=== PATIENT | female | born 1945 | race Two or more races ===

== ENCOUNTER 2022-10-12 19:12 | Inpatient (IN) | payer MEDICARE, OTHER ==
[~2022-10-12] VITALS: Ht 167.6 cm; Wt 49.0 kg
[~2022-10-12 19:12] MED LIST: WARF2TAB PO; [UNRECOGNIZED DRUG - REMARK]
[2022-10-12 21:49] LABS: Basophils # (auto) 0.1 10 ^3/uL (0-0.2); Basophils % (auto) 0.8 % (0.0-2.0); Eosinophils # (auto) 0.2 10 ^3/uL (0-0.8); Eosinophils % (auto) 1.9 % (0.0-7.0); Hematocrit 39.7 % (36.0-46.0); Hemoglobin 13.1 g/dL (12.2-16.2); Lymphocytes # (auto) 1.7 10 ^3/uL (0.4-5.4); Lymphocytes % (auto) 21.7 % (10.0-50.0); Mean Corpuscular Hemoglobin 31.5 pg (28.0-32.0); Mean Corpuscular Hgb Conc. 32.9 g/dL (32.0-36.0); Mean Corpuscular Volume 95.6 fL (80.0-100.0); Monocytes # (auto) 0.7 10 ^3/uL (0-1.3); Monocytes % (auto) 8.9 % (0.0-12.0); Neutrophils # (auto) 5.3 10 ^3/uL (1.6-8.6); Neutrophils % (auto) 66.7 % (37.0-80.0); Nucleated Red Blood Cells % 0.1 %; Red Blood Cells 4.15 10^6/uL (4.0-5.20); Red Cell Distribution Width 13.4 % (11.8-14.3)
[2022-10-12 22:12] LABS: INR 0.99 (0.9-1.15); Partial Thromboplastin Time 24.9 SEC (24.5-34.5)
[2022-10-12 22:26] LABS: Albumin 3.3 g/dL (3.4-5.0); Calcium 8.8 mg/dL (8.5-10.1); Potassium 4.1 mmol/L (3.5-5.1)
[2022-10-12 22:29] LABS: BUN/Creatinine Ratio 23.4 (10.0-20.0); Bilirubin, Total 0.2 mg/dL (0.2-1.0); Total Protein 6.8 g/dL (6.4-8.2)
[2022-10-12] MEDS ORDERED: ACETAMINOPHEN/CODEINE#3 (300/30mg) TAB PO ONE (23:15)
[2022-10-13] MEDS ORDERED: IOHEXOL 350 MG/ML 100ML IJ ONE (00:23)
[2022-10-13] MEDS ORDERED: ALBUTEROL SULF 2.5 MG/0.5ML(0.5%) NEB SOLN ONE (00:24)
[2022-10-13] MEDS ORDERED: IPRATROPIUM BROM 0.5 MG/2.5ML INH SOL ONE (00:25)
[2022-10-13] MEDS ORDERED: IPRATROPIUM BROM 0.5 MG/2.5ML INH SOL NEB ONE (00:30)
[2022-10-13] MEDS ORDERED: DexAMETHasone SOD PHOS 10MG/1ML VIAL INJ IV ONE (00:30)
[2022-10-13] MEDS ORDERED: ALBUTEROL SULF 2.5 MG/0.5ML(0.5%) NEB SOLN NEB ONE (00:30)
[2022-10-13] MEDS ORDERED: HYDROmorphone HCL 2 MG/ML VL/or syr IV ONE (01:15)
[2022-10-13 01:54] VITALS: BP 153/97
[2022-10-13] MEDS ORDERED: NITROGLYCERIN 0.4 MG SL TAB SL PRN (02:45)
[2022-10-13] MEDS: DexAMETHasone SOD PHOS 10MG/1ML VIAL INJ IV SCH ×3 (05:45→21:20)
[2022-10-13] MEDS: SODIUM CHLOR 0.9% PF (SALINE LOCK) 10ML VIAL/SYR IV SCH ×3 (05:45→21:20)
[2022-10-13] MEDS: HYDROmorphone HCL 2 MG/ML VL/or syr IV PRN ×4 (05:46→20:25)
[2022-10-13 06:24] LABS: Albumin 3.4 g/dL (3.4-5.0); Calcium 9.1 mg/dL (8.5-10.1); Potassium 4.7 mmol/L (3.5-5.1)
[2022-10-13 06:29] LABS: BUN/Creatinine Ratio 22.6 (10.0-20.0); Bilirubin, Total 0.4 mg/dL (0.2-1.0)
[2022-10-13 06:32] LABS: Basophils # (auto) 0 10 ^3/uL (0-0.2); Basophils % (auto) 0.5 % (0.0-2.0); Eosinophils # (auto) 0 10 ^3/uL (0-0.8); Eosinophils % (auto) 0.2 % (0.0-7.0); Hematocrit 39.9 % (36.0-46.0); Hemoglobin 13.3 g/dL (12.2-16.2); Lymphocytes # (auto) 0.8 10 ^3/uL (0.4-5.4); Mean Corpuscular Hemoglobin 31.8 pg (28.0-32.0); Mean Corpuscular Hgb Conc. 33.3 g/dL (32.0-36.0); Mean Corpuscular Volume 95.5 fL (80.0-100.0); Monocytes # (auto) 0.1 10 ^3/uL (0-1.3); Monocytes % (auto) 1.3 % (0.0-12.0); Neutrophils # (auto) 6.8 10 ^3/uL (1.6-8.6); Red Blood Cells 4.18 10^6/uL (4.0-5.20); Red Cell Distribution Width 13.4 % (11.8-14.3); White Blood Cell 7.7 10^3/uL (4.4-10.8)
[2022-10-13] MEDS: hydrALAZINE HCL 20 MG/ML VL IV PRN ×2 (06:46→21:19)
[2022-10-13] MEDS: IPRATROPIUM BROM 0.5 MG/2.5ML INH SOL NEB PRN ×3 (07:14→21:37)
[2022-10-13] MEDS: ALBUTEROL SULF 2.5 MG/0.5ML(0.5%) NEB SOLN NEB PRN ×3 (07:14→21:37)
[2022-10-13] MEDS: ONDANSETRON HCL 4 MG/2 ML VIAL IV PRN ×3 (07:45→20:23)
[2022-10-13] MEDS: FAMOTIDINE (10MG/ML) 2ML VL IV SCH ×2 (10:24→21:20)
[2022-10-13 12:33] VITALS: BP 104/72
[2022-10-13 14:00] VITALS: BP 104/72
[2022-10-13 17:00] VITALS: BP 178/103
[2022-10-13] MEDS ORDERED: WARFARIN SODIUM 2 MG TAB PO ONE (17:00)
[2022-10-13 22:00] VITALS: BP 153/93
[2022-10-14] MEDS: ONDANSETRON HCL 4 MG/2 ML VIAL IV PRN ×6 (01:00→22:32)
[2022-10-14] MEDS: HYDROmorphone HCL 2 MG/ML VL/or syr IV PRN ×6 (01:02→22:32)
[2022-10-14 05:00] VITALS: BP 127/78
[2022-10-14] MEDS: ALBUTEROL SULF 2.5 MG/0.5ML(0.5%) NEB SOLN NEB PRN (05:01)
[2022-10-14] MEDS: IPRATROPIUM BROM 0.5 MG/2.5ML INH SOL NEB PRN (05:01)
[2022-10-14] MEDS: DexAMETHasone SOD PHOS 10MG/1ML VIAL INJ IV SCH ×3 (05:25→22:33)
[2022-10-14] MEDS: SODIUM CHLOR 0.9% PF (SALINE LOCK) 10ML VIAL/SYR IV SCH ×3 (05:26→22:38)
[2022-10-14 06:02] LABS: Basophils # (auto) 0 10 ^3/uL (0-0.2); Basophils % (auto) 0.5 % (0.0-2.0); Eosinophils # (auto) 0 10 ^3/uL (0-0.8); Eosinophils % (auto) 0.1 % (0.0-7.0); Hematocrit 39.8 % (36.0-46.0); Hemoglobin 13.5 g/dL (12.2-16.2); Lymphocytes # (auto) 1.2 10 ^3/uL (0.4-5.4); Lymphocytes % (auto) 16.3 % (10.0-50.0); Mean Corpuscular Hemoglobin 31.9 pg (28.0-32.0); Mean Corpuscular Hgb Conc. 33.9 g/dL (32.0-36.0); Mean Corpuscular Volume 94.2 fL (80.0-100.0); Monocytes # (auto) 0.6 10 ^3/uL (0-1.3); Monocytes % (auto) 8.4 % (0.0-12.0); Neutrophils # (auto) 5.4 10 ^3/uL (1.6-8.6); Neutrophils % (auto) 74.7 % (37.0-80.0); Nucleated Red Blood Cells % 0.1 %; Red Blood Cells 4.23 10^6/uL (4.0-5.20); Red Cell Distribution Width 13.2 % (11.8-14.3); White Blood Cell 7.2 10^3/uL (4.4-10.8)
[2022-10-14 06:22] LABS: Potassium 4.2 mmol/L (3.5-5.1)
[2022-10-14 06:31] LABS: Albumin 3.5 g/dL (3.4-5.0); BUN/Creatinine Ratio 32.6 (10.0-20.0); Bilirubin, Total 0.4 mg/dL (0.2-1.0); Calcium 9.4 mg/dL (8.5-10.1); Total Protein 7.1 g/dL (6.4-8.2)
[2022-10-14 06:52] LABS: INR 1.04 (0.9-1.15)
[2022-10-14 08:00] VITALS: BP 130/64
[2022-10-14 09:00] VITALS: BP 130/64
[2022-10-14] MEDS: FAMOTIDINE (10MG/ML) 2ML VL IV SCH ×2 (09:59→22:33)
[2022-10-14 13:00] VITALS: BP 140/72
[2022-10-14] MEDS: ALBUTEROL SULF 2.5 MG/0.5ML(0.5%) NEB SOLN NEB SCH ×2 (13:25→19:28)
[2022-10-14] MEDS: IPRATROPIUM BROM 0.5 MG/2.5ML INH SOL NEB SCH ×2 (13:25→19:28)
[2022-10-14] MEDS: AZITHROMYCIN 500MG/ 250ML 250 ML IV SCH (14:14)
[2022-10-14] MEDS ORDERED: WARFARIN SODIUM 2 MG TAB PO ONE (17:00)
[2022-10-14 17:03] VITALS: BP 163/83
[2022-10-14 22:00] VITALS: BP 127/66
[2022-10-15] VITALS (7 sets, daily range): BP systolic 134–158; BP diastolic 76–87
[2022-10-15] MEDS: IPRATROPIUM BROM 0.5 MG/2.5ML INH SOL NEB SCH ×5 (00:23→22:25)
[2022-10-15] MEDS: ALBUTEROL SULF 2.5 MG/0.5ML(0.5%) NEB SOLN NEB SCH ×5 (00:24→22:25)
[2022-10-15] MEDS: ONDANSETRON HCL 4 MG/2 ML VIAL IV PRN ×3 (02:46→16:10)
[2022-10-15] MEDS: HYDROmorphone HCL 2 MG/ML VL/or syr IV PRN ×3 (02:46→10:37)
[2022-10-15] MEDS: DexAMETHasone SOD PHOS 10MG/1ML VIAL INJ IV SCH ×3 (06:29→21:21)
[2022-10-15] MEDS: SODIUM CHLOR 0.9% PF (SALINE LOCK) 10ML VIAL/SYR IV SCH ×3 (06:31→21:22)
[2022-10-15 06:41] LABS: INR 1.42 (0.9-1.15); Partial Thromboplastin Time 23.8 SEC (24.5-34.5)
[2022-10-15] MEDS: FAMOTIDINE (10MG/ML) 2ML VL IV SCH ×2 (10:00→21:21)
[2022-10-15] MEDS: AZITHROMYCIN 500MG/ 250ML 250 ML IV SCH (10:37)
[2022-10-15] MEDS ORDERED: WARFARIN SODIUM 2.5 MG TAB PO ONE (17:00)
[2022-10-15] MEDS: diphenhdrAMINE HCL 50 MG/1 ML VL IV PRN (21:21)
[2022-10-16] VITALS (7 sets, daily range): BP systolic 130–174; BP diastolic 74–93
[2022-10-16 05:48] LABS: INR 1.63 (0.9-1.15)
[2022-10-16] MEDS: ALBUTEROL SULF 2.5 MG/0.5ML(0.5%) NEB SOLN NEB SCH ×4 (05:54→23:02)
[2022-10-16] MEDS: IPRATROPIUM BROM 0.5 MG/2.5ML INH SOL NEB SCH ×4 (05:54→23:02)
[2022-10-16] MEDS: DexAMETHasone SOD PHOS 10MG/1ML VIAL INJ IV SCH ×3 (06:26→22:01)
[2022-10-16] MEDS: SODIUM CHLOR 0.9% PF (SALINE LOCK) 10ML VIAL/SYR IV SCH ×3 (06:31→22:01)
[2022-10-16] MEDS: AZITHROMYCIN 500MG/ 250ML 250 ML IV SCH (08:48)
[2022-10-16] MEDS: hydrALAZINE HCL 20 MG/ML VL IV PRN ×2 (08:48→15:59)
[2022-10-16] MEDS: FAMOTIDINE (10MG/ML) 2ML VL IV SCH ×2 (08:49→22:01)
[2022-10-16] MEDS: ALBUTEROL SULF 2.5 MG/0.5ML(0.5%) NEB SOLN NEB PRN (10:31)
[2022-10-16] MEDS: ONDANSETRON HCL 4 MG/2 ML VIAL IV PRN ×2 (13:18→17:41)
[2022-10-16] MEDS: DOCUSATE SOD 100 MG CAP PO PRN (13:18)
[2022-10-16] MEDS ORDERED: WARFARIN SODIUM 1 MG TAB PO ONE (17:00)
[2022-10-17] VITALS (8 sets, daily range): BP systolic 149–184; BP diastolic 74–99
[2022-10-17] MEDS: diphenhdrAMINE HCL 50 MG/1 ML VL IV PRN (01:37)
[2022-10-17] MEDS: ALBUTEROL SULF 2.5 MG/0.5ML(0.5%) NEB SOLN NEB PRN (03:10)
[2022-10-17] MEDS: SODIUM CHLOR 0.9% PF (SALINE LOCK) 10ML VIAL/SYR IV SCH ×2 (05:43→13:32)
[2022-10-17] MEDS: DOCUSATE SOD 100 MG CAP PO PRN (05:43)
[2022-10-17] MEDS: DexAMETHasone SOD PHOS 10MG/1ML VIAL INJ IV SCH (05:43)
[2022-10-17 06:09] LABS: INR 2.05 (0.9-1.15); Partial Thromboplastin Time 33.2 SEC (24.5-34.5)
[2022-10-17] MEDS: IPRATROPIUM BROM 0.5 MG/2.5ML INH SOL NEB SCH ×2 (06:40→11:57)
[2022-10-17] MEDS: ALBUTEROL SULF 2.5 MG/0.5ML(0.5%) NEB SOLN NEB SCH ×2 (06:40→11:57)
[2022-10-17] MEDS: FAMOTIDINE (10MG/ML) 2ML VL IV SCH (09:16)
[2022-10-17] MEDS: ONDANSETRON HCL 4 MG/2 ML VIAL IV PRN (09:16)
[2022-10-17] MEDS: AZITHROMYCIN 500MG/ 250ML 250 ML IV SCH (09:57)
[2022-10-17] MEDS ORDERED: hydrALAZINE HCL 10 MG TAB PO ONE ×2 (11:15→15:45)
[2022-10-17] MEDS ORDERED: METOPROLOL TARTRATE 25 MG TAB PO ONE (13:45)
[2022-10-17] MEDS ORDERED: METH4PAK PO (14:37)
[2022-10-17] MEDS: hydrALAZINE HCL 20 MG/ML VL IV PRN (16:14)
[2022-10-17] MEDS ORDERED: WARFARIN SODIUM 2 MG TAB PO ONE (17:00)
[2022-10-18] MEDS ORDERED: DexAMETHasone SOD PHOS 10MG/1ML VIAL INJ IV SCH (10:00)
== END 2022-10-17 18:10 | disposition home or self-care (01) | DRG 189 ==
LOC: EDUNIT# 19:12 → EDBD 19:12 → ER 19:12 → TELE 10-13 02:46 → TELE-CENTR 10-13 12:35
PROVIDERS: ADMIT Nurse Practitioner Family; ATTEND Internal Medicine
DX: J96.21 Acute and chronic respiratory failure with hypoxia (principal); J44.1 Chronic obstructive pulmonary disease with (acute) exacerbation; I10 Essential (primary) hypertension; F17.210 Nicotine dependence, cigarettes, uncomplicated; J45.909 Unspecified asthma, uncomplicated; Z86.711 Personal history of pulmonary embolism; Z88.6 Allergy status to analgesic agent; Z90.710 Acquired absence of both cervix and uterus; Z88.8 Allergy status to other drugs, medicaments and biological substances; Z71.6 Tobacco abuse counseling; J20.9 Acute bronchitis, unspecified
CPT/HCPCS: 36415; 36600; 71045; 71260; 74177; 80053; 82805; 83880; 84484; 85025; 85379; 85610; 85730; 94640; G0378; J1100; J2405; J3490

== ENCOUNTER 2023-08-11 03:07 | Emergency (ER) | payer OTHER ==
[~2023-08-11] VITALS: Ht 160 cm; Wt 68.1 kg
[~2023-08-11 03:07] MED LIST changes: +ALBUAER3 IN; +AZIT500T66 PO; +IPRA0.00 IN; +PRED20TA2 PO; -WARF2TAB PO; -[UNRECOGNIZED DRUG - REMARK]
[2023-08-11] MEDS: ALBUTEROL SULF 2.5 MG/0.5ML(0.5%) NEB SOLN NEB ONE ×2 (03:46→06:58)
[2023-08-11] MEDS: IPRATROPIUM BROM 0.5 MG/2.5ML INH SOL NEB ONE ×2 (03:46→06:59)
[2023-08-11] MEDS: methylPREDNISolone SOD SUCC 125 MG/2 ML VL IV ONE (03:47)
[2023-08-11 04:02] LABS: Basophils # (auto) 0.1 10 ^3/uL (0-0.2); Eosinophils # (auto) 0.2 10 ^3/uL (0-0.8); Eosinophils % (auto) 1.9 % (0.0-7.0); Hematocrit 43.5 % (36.0-46.0); Hemoglobin 14.3 g/dL (12.2-16.2); Lymphocytes # (auto) 1.6 10 ^3/uL (0.4-5.4); Lymphocytes % (auto) 16.6 % (10.0-50.0); Mean Corpuscular Hemoglobin 29.6 pg (28.0-32.0); Mean Corpuscular Hgb Conc. 32.8 g/dL (32.0-36.0); Mean Corpuscular Volume 90.5 fL (80.0-100.0); Monocytes # (auto) 0.8 10 ^3/uL (0-1.3); Monocytes % (auto) 8.3 % (0.0-12.0); Neutrophils # (auto) 6.8 10 ^3/uL (1.6-8.6); Neutrophils % (auto) 72.2 % (37.0-80.0); Nucleated Red Blood Cells % 0.1 %; Red Blood Cells 4.81 10^6/uL (4.0-5.20); Red Cell Distribution Width 13.9 % (11.8-14.3); White Blood Cell 9.5 10^3/uL (4.4-10.8)
[2023-08-11 04:07] VITALS: PULSE 98; RESP 22; O2SAT 99
[2023-08-11] MEDS: AZITHROMYCIN 250 MG TAB PO ONE (04:29)
[2023-08-11] MEDS: cefTRIAXone 1GM/50ML D5W 50 ML IV ONE (04:29)
[2023-08-11 04:48] LABS: Chloride 104 mmol/L (98-107); Potassium 3.9 mmol/L (3.5-5.1); Sodium 141 mmol/L (136-145)
[2023-08-11] MEDS: ONDANSETRON HCL 4 MG/2 ML VIAL IV ONE (04:48)
[2023-08-11 04:49] LABS: Anion Gap 11 (5-15); Calcium 9.8 mg/dL (8.5-10.1); Carbon Dioxide 26 mmol/L (20-30)
[2023-08-11 04:54] LABS: BUN/Creatinine Ratio 10.3 (10.0-20.0); Blood Urea Nitrogen 8 mg/dL (9-23); Glucose 80 mg/dL (74-106)
[2023-08-11] MEDS: ASPirin 325 MG TAB PO ONE (05:00)
[2023-08-11] MEDS: METOPROLOL SUCCINATE XL 50 MG TAB PO ONE ×2 (06:57→12:14)
[2023-08-11 08:00] VITALS: RESP 21; TEMP 98.8; O2SAT 91
[2023-08-11 10:14] VITALS: BP 183/105; PULSE 103
== END 2023-08-11 12:13 | disposition home or self-care (01) ==
LOC: EDBD 03:07 → ER 03:07
DX: J44.1 Chronic obstructive pulmonary disease with (acute) exacerbation (principal); I25.9 Chronic ischemic heart disease, unspecified; I10 Essential (primary) hypertension; F17.210 Nicotine dependence, cigarettes, uncomplicated; Z90.710 Acquired absence of both cervix and uterus
CPT/HCPCS: 36415; 36600; 71045; 80048; 82805; 83880; 84484; 85025; 93005; 94640; 96365; 96375; 99291; J0696; J2405; J2930; J7644

== ENCOUNTER 2023-08-26 18:13 | Emergency (ER) | payer OTHER ==
[~2023-08-26] VITALS: Ht 170.2 cm; Wt 61.0 kg
[2023-08-26 18:15] VITALS: PULSE 102; RESP 18; O2SAT 100
[2023-08-26] MEDS: ALBUTEROL SULF 2.5 MG/0.5ML(0.5%) NEB SOLN NEB ONE ×2 (18:52→20:46)
[2023-08-26] MEDS: IPRATROPIUM BROM 0.5 MG/2.5ML INH SOL NEB ONE ×2 (18:52→20:46)
[2023-08-26 19:02] LABS: Basophils # (auto) 0.1 10 ^3/uL (0-0.2); Basophils % (auto) 0.9 % (0.0-2.0); Eosinophils # (auto) 0.1 10 ^3/uL (0-0.8); Eosinophils % (auto) 0.7 % (0.0-7.0); Hematocrit 45.2 % (36.0-46.0); Hemoglobin 14.4 g/dL (12.2-16.2); Lymphocytes # (auto) 2.4 10 ^3/uL (0.4-5.4); Lymphocytes % (auto) 21.6 % (10.0-50.0); Mean Corpuscular Hemoglobin 29.2 pg (28.0-32.0); Mean Corpuscular Hgb Conc. 31.9 g/dL (32.0-36.0); Mean Corpuscular Volume 91.4 fL (80.0-100.0); Monocytes % (auto) 8.8 % (0.0-12.0); Neutrophils # (auto) 7.6 10 ^3/uL (1.6-8.6); Nucleated Red Blood Cells % 0.1 %; Red Blood Cells 4.94 10^6/uL (4.0-5.20); Red Cell Distribution Width 14.5 % (11.8-14.3); White Blood Cell 11.1 10^3/uL (4.4-10.8)
[2023-08-26 19:12] LABS: Chloride 107 mmol/L (98-107); Sodium 140 mmol/L (136-145)
[2023-08-26 19:13] LABS: Anion Gap 12 (5-15); Carbon Dioxide 21 mmol/L (20-30)
[2023-08-26 19:14] LABS: Calcium 9.9 mg/dL (8.5-10.1)
[2023-08-26 19:19] LABS: BUN/Creatinine Ratio 22.3 (10.0-20.0); Blood Urea Nitrogen 21 mg/dL (9-23); Glucose 61 mg/dL (74-106)
[2023-08-26 19:30] VITALS: PULSE 107; RESP 18; O2SAT 99
[2023-08-26] MEDS: cefTRIAXone 1GM/50ML D5W 50 ML IV ONE (20:21)
[2023-08-26] MEDS: methylPREDNISolone SOD SUCC 125 MG/2 ML VL IV ONE (20:22)
[2023-08-26] MEDS: AZITHROMYCIN 250 MG TAB PO ONE (20:29)
[2023-08-26] MEDS ORDERED: HYDROcodone-ACET 5/325MG TAB PO ONE (21:30)
[2023-08-26] MEDS ORDERED: ACETAMINOPHEN 325 MG TAB PO ONE (22:15)
[2023-08-26] MEDS: ONDANSETRON HCL 4 MG/2 ML VIAL IV ONE (22:38)
[2023-08-27 07:42] VITALS: TEMP 97.7
[2023-08-27] MEDS: HYDROcodone-ACET 5/325MG TAB PO ONE (08:26)
[2023-08-27] MEDS: ACETAMINOPHEN 325 MG TAB PO ONE (08:30)
[2023-08-27 13:00] VITALS: BP 169/104; PULSE 91; RESP 18; O2SAT 98
== END 2023-08-27 15:05 | disposition home or self-care (01) ==
LOC: EDBD 18:13 → ER 18:13
DX: J44.1 Chronic obstructive pulmonary disease with (acute) exacerbation (principal); I10 Essential (primary) hypertension; F17.210 Nicotine dependence, cigarettes, uncomplicated; Z98.890 Other specified postprocedural states
CPT/HCPCS: 36415; 36600; 71045; 80048; 82805; 83605; 83880; 84484; 85025; 87040; 94640; 96365; 96375; 99284; J0696; J2405; J2919; J7644; 99291

== ENCOUNTER 2023-09-13 02:26 | Emergency (ER) | payer OTHER ==
[~2023-09-13] VITALS: Ht 162.6 cm; Wt 50.0 kg
[2023-09-13] MEDS: ALBUTEROL SULF 2.5 MG/0.5ML(0.5%) NEB SOLN NEB ONE (02:58)
[2023-09-13] MEDS: IPRATROPIUM BROM 0.5 MG/2.5ML INH SOL NEB ONE (02:58)
[2023-09-13 03:38] LABS: Basophils # (auto) 0.1 10 ^3/uL (0-0.2); Basophils % (auto) 0.7 % (0.0-2.0); Eosinophils # (auto) 0.2 10 ^3/uL (0-0.8); Eosinophils % (auto) 1.1 % (0.0-7.0); Hemoglobin 13.9 g/dL (12.2-16.2); Lymphocytes # (auto) 2.1 10 ^3/uL (0.4-5.4); Lymphocytes % (auto) 13.7 % (10.0-50.0); Mean Corpuscular Hemoglobin 29.2 pg (28.0-32.0); Mean Corpuscular Hgb Conc. 31.5 g/dL (32.0-36.0); Mean Corpuscular Volume 92.7 fL (80.0-100.0); Monocytes # (auto) 1.3 10 ^3/uL (0-1.3); Monocytes % (auto) 8.4 % (0.0-12.0); Neutrophils # (auto) 11.8 10 ^3/uL (1.6-8.6); Neutrophils % (auto) 76.1 % (37.0-80.0); Red Blood Cells 4.74 10^6/uL (4.0-5.20); Red Cell Distribution Width 15.1 % (11.8-14.3); White Blood Cell 15.5 10^3/uL (4.4-10.8)
[2023-09-13] MEDS: methylPREDNISolone SOD SUCC 125 MG/2 ML VL IV ONE ×2 (03:42→10:36)
[2023-09-13 03:59] LABS: Albumin 4.1 g/dL (3.2-4.8); Alkaline Phosphatase 54 U/L (46-116); Anion Gap 8 (5-15); Aspartate Aminotransferase 9 U/L (13-40); Bilirubin, Total 0.3 mg/dL (0.2-1.0); Blood Urea Nitrogen 19 mg/dL (9-23); Calcium 9.3 mg/dL (8.7-10.4); Carbon Dioxide 23 mmol/L (20-30); Chloride 111 mmol/L (98-107); Glucose 120 mg/dL (74-106); Potassium 4.2 mmol/L (3.5-5.1); Sodium 142 mmol/L (136-145)
[2023-09-13 04:00] VITALS: PULSE 106; RESP 20; O2SAT 97
[2023-09-13 04:00] LABS: Total Protein 6.6 g/dL (5.7-8.2)
[2023-09-13 04:04] LABS: Alanine Aminotransferase 9 U/L (7-40)
[2023-09-13] MEDS: AZITHROMYCIN 500MG/ 250ML 250 ML IV ONE (05:31)
[2023-09-13] MEDS: NITROGLYCERIN 2% OINT 1GM PKG TD ONE (05:37)
[2023-09-13] MEDS: ASPirin 325 MG TAB PO ONE (05:40)
[2023-09-13 07:45] VITALS: PULSE 98; RESP 16; O2SAT 95
[2023-09-13 08:00] VITALS: TEMP 97.8
[2023-09-13] MEDS: ENOXAPARIN SOD 100 MG/1 ML SYRINGE SC ONE (08:09)
[2023-09-13 10:00] VITALS: O2SAT 95
[2023-09-13] MEDS ORDERED: PRED20TA2 PO (10:47)
[2023-09-13] MEDS ORDERED: IPRA0.00 IN (10:47)
[2023-09-13] MEDS ORDERED: AZIT500T66 PO (10:47)
[2023-09-13] MEDS ORDERED: ALBUAER3 IN (10:47)
[2023-09-13] MEDS ORDERED: HYDROmorphone HCL 2 MG/ML VL/or syr IV ONE (11:00)
[2023-09-13 11:08] VITALS: BP 166/110; PULSE 100; RESP 22
[2023-09-13] MEDS: HYDROmorphone HCL 2 MG/ML VL/or syr IV ONE (11:08)
== END 2023-09-13 15:41 | disposition home or self-care (01) ==
LOC: ER 02:26 → EDBD 02:26 → EDUNIT# 02:26 → ER 15:41
DX: J44.1 Chronic obstructive pulmonary disease with (acute) exacerbation (principal); I21.4 Non-ST elevation (NSTEMI) myocardial infarction; I10 Essential (primary) hypertension; F17.210 Nicotine dependence, cigarettes, uncomplicated; Z90.49 Acquired absence of other specified parts of digestive tract; Z90.710 Acquired absence of both cervix and uterus; Z88.6 Allergy status to analgesic agent; Z88.8 Allergy status to other drugs, medicaments and biological substances
CPT/HCPCS: 36415; 71045; 80053; 84484; 85025; 93005; 94640; 96365; 96366; 96372; 96375; 96376; 99284; J0456; J1170; J1650; J2919; J7644

== ENCOUNTER 2023-10-12 12:39 | Inpatient (IN) | payer OTHER ==
[~2023-10-12] VITALS: Ht 170.2 cm; Wt 48.3 kg
[2023-10-12 13:03] VITALS: PULSE 122; RESP 20; O2SAT 95
[2023-10-12 13:27] LABS: Basophils # (auto) 0.1 10 ^3/uL (0-0.2); Basophils % (auto) 0.9 % (0.0-2.0); Eosinophils # (auto) 0.2 10 ^3/uL (0-0.8); Eosinophils % (auto) 2.5 % (0.0-7.0); Hematocrit 37.1 % (36.0-46.0); Hemoglobin 12.1 g/dL (12.2-16.2); Lymphocytes # (auto) 1.2 10 ^3/uL (0.4-5.4); Lymphocytes % (auto) 13.1 % (10.0-50.0); Mean Corpuscular Hemoglobin 29.9 pg (28.0-32.0); Mean Corpuscular Hgb Conc. 32.7 g/dL (32.0-36.0); Mean Corpuscular Volume 91.5 fL (80.0-100.0); Monocytes % (auto) 10.2 % (0.0-12.0); Neutrophils # (auto) 6.9 10 ^3/uL (1.6-8.6); Neutrophils % (auto) 73.3 % (37.0-80.0); Nucleated Red Blood Cells % 0.1 %; Red Blood Cells 4.05 10^6/uL (4.0-5.20); Red Cell Distribution Width 14.6 % (11.8-14.3); White Blood Cell 9.4 10^3/uL (4.4-10.8)
[2023-10-12] MEDS: ALBUTEROL SULF 2.5 MG/0.5ML(0.5%) NEB SOLN NEB ONE ×2 (13:36→19:30)
[2023-10-12 13:54] LABS: Alanine Aminotransferase 12 U/L (7-40); Albumin 3.8 g/dL (3.2-4.8); Alkaline Phosphatase 42 U/L (46-116); Anion Gap 8 (5-15); Aspartate Aminotransferase 24 U/L (13-40); BUN/Creatinine Ratio 21.1 (10.0-20.0); Blood Urea Nitrogen 15 mg/dL (9-23); Calcium 9.2 mg/dL (8.5-10.1); Carbon Dioxide 28 mmol/L (20-30); Chloride 107 mmol/L (98-107); Glucose 105 mg/dL (74-106); Potassium 4.5 mmol/L (3.5-5.1); Sodium 143 mmol/L (136-145)
[2023-10-12 13:55] LABS: Bilirubin, Total 0.4 mg/dL (0.2-1.0); Total Protein 5.5 g/dL (5.7-8.2)
[2023-10-12] MEDS: AZITHROMYCIN 250 MG TAB PO ONE (16:36)
[2023-10-12] MEDS: HYDROmorphone HCL 2 MG/ML VL/or syr IV ONE (16:36)
[2023-10-12] MEDS: ONDANSETRON HCL 4 MG/2 ML VIAL IV ONE (16:36)
[2023-10-12] MEDS: SODIUM CHL 0.9% IV ONE (18:45)
[2023-10-12] MEDS: METHYLPREDNISOLONE SOD SUCC IV ONE (18:45)
[2023-10-12] MEDS: ALBUTEROL SULF 2.5 MG/0.5ML(0.5%) NEB SOLN ONE (18:56)
[2023-10-12 19:30] VITALS: PULSE 102; RESP 15; O2SAT 96
[2023-10-12] MEDS: LORazepam 2MG/ML-1ML VIAL IV ONE (21:18)
[2023-10-12 21:22] LABS: Urine Bacteria None Seen /hpf (None Seen)
[2023-10-12 21:34] LABS: Base Excess -0.3 mmol/L (-2.0-2.0)
[2023-10-12 21:35] VITALS: PULSE 111; O2SAT 100
[2023-10-12 21:37] LABS: Urine Blood Negative /uL (Negative); Urine Clarity Clear (Clear); Urine Color Light-Yellow (Yellow); Urine Protein, UAD Negative (Negative); Urine Specific Gravity 1.013 (1.001-1.035); Urine Urobilinogen Normal (Negative); Urine WBC 1 /hpf (0 - 5)
[2023-10-12] MEDS ORDERED: DOCUSATE SOD 100 MG CAP PO PRN (22:30)
[2023-10-12] MEDS ORDERED: ONDANSETRON HCL 4 MG/2 ML VIAL IV PRN (22:30)
[2023-10-12 22:54] VITALS: BP 162/88; PULSE 111; RESP 16; TEMP 98.2; O2SAT 100
[2023-10-12] MEDS: ASPirin 81 mg TAB PO ONE (23:33)
[2023-10-12] MEDS: HYDROmorphone HCL 2 MG/ML VL/or syr IV PRN (23:34)
[2023-10-12 23:54] VITALS: BP 156/99; PULSE 105; O2SAT 94
[2023-10-13] VITALS (16 sets, daily range): BP systolic 122–171; BP diastolic 69–93; PULSE 72–110; RESP 16–24; TEMP 97.3–99.8; O2SAT 94–100
[2023-10-13] MEDS ORDERED: MORPHINE SULFATE INJ 2 MG/ml SYRG IV PRN
[2023-10-13] MEDS ORDERED: NITROGLYCERIN 0.4 MG SL TAB SL PRN
[2023-10-13] MEDS: MELATONIN 5 MG TAB PO ONE (00:30)
[2023-10-13] MEDS: ALBUTEROL SULF 2.5 MG/0.5ML(0.5%) NEB SOLN NEB PRN (03:59)
[2023-10-13] MEDS: IPRATROPIUM BROM 0.5 MG/2.5ML INH SOL NEB PRN (03:59)
[2023-10-13] MEDS: SODIUM CHLOR 0.9% PF (SALINE LOCK) 10ML VIAL/SYR IV SCH (05:28)
[2023-10-13] MEDS: methylPREDNISolone SOD SUCC 40 MG/ML VL IV SCH (05:29)
[2023-10-13 06:50] LABS: Basophils # (auto) 0 10 ^3/uL (0-0.2); Basophils % (auto) 0.4 % (0.0-2.0); Eosinophils # (auto) 0 10 ^3/uL (0-0.8); Hemoglobin 12.2 g/dL (12.2-16.2); Lymphocytes # (auto) 0.4 10 ^3/uL (0.4-5.4); Lymphocytes % (auto) 6.6 % (10.0-50.0); Mean Corpuscular Hemoglobin 29.8 pg (28.0-32.0); Mean Corpuscular Volume 90.3 fL (80.0-100.0); Monocytes # (auto) 0 10 ^3/uL (0-1.3); Monocytes % (auto) 0.7 % (0.0-12.0); Neutrophils % (auto) 92.3 % (37.0-80.0); Nucleated Red Blood Cells % 0.1 %; Red Cell Distribution Width 14.4 % (11.8-14.3); White Blood Cell 5.4 10^3/uL (4.4-10.8)
[2023-10-13 07:17] LABS: Alanine Aminotransferase 11 U/L (7-40); Alkaline Phosphatase 41 U/L (46-116); Anion Gap 8 (5-15); BUN/Creatinine Ratio 25.9 (10.0-20.0); Blood Urea Nitrogen 21 mg/dL (9-23); Calcium 9.4 mg/dL (8.7-10.4); Carbon Dioxide 27 mmol/L (20-30); Chloride 106 mmol/L (98-107); Glucose 135 mg/dL (74-106); Sodium 141 mmol/L (136-145)
[2023-10-13 07:18] LABS: Albumin 3.7 g/dL (3.2-4.8)
[2023-10-13 07:19] LABS: Aspartate Aminotransferase 14 U/L (13-40); Bilirubin, Total 0.3 mg/dL (0.2-1.0); Total Protein 5.6 g/dL (5.7-8.2)
[2023-10-13] MEDS: FAMOTIDINE (10MG/ML) 2ML VL IV SCH (09:48)
[2023-10-13] MEDS: ASPirin 81 mg TAB PO SCH (09:49)
[2023-10-13] MEDS: cefTRIAXone 1GM/50ML D5W 50 ML IV ONE (12:45)
[2023-10-13] MEDS: hydrALAZINE HCL 20 MG/ML VL IV PRN (14:45)
[2023-10-14] VITALS (12 sets, daily range): BP systolic 119–169; BP diastolic 73–90; PULSE 77–89; RESP 17–20; TEMP 97.9–98.5; O2SAT 93–99
[2023-10-14] MEDS: cefTRIAXone 1GM/50ML D5W 50 ML IV SCH (09:00)
[2023-10-15] VITALS (16 sets, daily range): BP systolic 95–185; BP diastolic 52–96; PULSE 62–114; RESP 16–22; TEMP 97.8–98.1; O2SAT 91–99
[2023-10-15] MEDS: IPRATROPIUM BROM 0.5 MG/2.5ML INH SOL NEB SCH (12:37)
[2023-10-15] MEDS: ALBUTEROL SULF 2.5 MG/0.5ML(0.5%) NEB SOLN NEB SCH (12:37)
[2023-10-16] VITALS (11 sets, daily range): BP systolic 124–164; BP diastolic 74–99; PULSE 61–110; RESP 16–19; TEMP 97.9–98.2; O2SAT 94–97
[2023-10-16] MEDS ORDERED: LEVO500T91 PO (11:50)
[2023-10-16] MEDS ORDERED: PRED20TA2 PO (11:50)
== END 2023-10-16 17:16 | disposition hospice, home (50) | DRG 189 ==
LOC: EDBD 12:39 → ER 12:39 → TELE 23:51 → TELE-WESTW 10-13 02:25
PROVIDERS: ADMIT Nurse Practitioner Family; ATTEND Family Medicine
PROC: 5A09357 Assistance with Respiratory Ventilation, Less than 24 Consecutive Hours, Continuous Positive Airway Pressure (ICD-10-PCS; principal; 2023-10-12)
DX: J96.01 Acute respiratory failure with hypoxia (principal); J18.9 Pneumonia, unspecified organism; J44.1 Chronic obstructive pulmonary disease with (acute) exacerbation; I10 Essential (primary) hypertension; F17.210 Nicotine dependence, cigarettes, uncomplicated; Z51.5 Encounter for palliative care; Z90.710 Acquired absence of both cervix and uterus; Z90.49 Acquired absence of other specified parts of digestive tract; Z88.6 Allergy status to analgesic agent; Z86.711 Personal history of pulmonary embolism; Z79.899 Other long term (current) drug therapy
CPT/HCPCS: 36415; 36600; 71045; 80053; 81001; 82805; 84484; 85025; 85379; 93005; 94640; 94660; 96365; 96366; 96375; G0378; J2405; J3490

== ENCOUNTER 2023-12-05 04:01 | Inpatient (IN) | payer OTHER ==
[~2023-12-05] VITALS: Ht 160 cm; Wt 38.3 kg
[~2023-12-05 04:01] MED LIST changes: +ALBU108A5 INH; +BUDE1AER16 INH; +DILT-29 PO; +GABA-1250 PO; +IPRA0.00 NEB; +LEVO500T91 PO; +OMEP1CAP70 PO; +WARF4TAB69 PO
[2023-12-05 05:30] VITALS: PULSE 115; RESP 22; O2SAT 92
[2023-12-05 07:25] VITALS: PULSE 106; RESP 22; O2SAT 96
[2023-12-05 07:30] LABS: Basophils # (auto) 0 10 ^3/uL (0-0.2); Basophils % (auto) 0.2 % (0.0-2.0); Eosinophils # (auto) 0 10 ^3/uL (0-0.8); Eosinophils % (auto) 0.2 % (0.0-7.0); Hematocrit 48.9 % (36.0-46.0); Hemoglobin 16.1 g/dL (12.2-16.2); Lymphocytes # (auto) 1.4 10 ^3/uL (0.4-5.4); Lymphocytes % (auto) 9.1 % (10.0-50.0); Mean Corpuscular Hemoglobin 29.8 pg (28.0-32.0); Mean Corpuscular Volume 90.3 fL (80.0-100.0); Monocytes # (auto) 1.4 10 ^3/uL (0-1.3); Monocytes % (auto) 9.3 % (0.0-12.0); Neutrophils # (auto) 12.2 10 ^3/uL (1.6-8.6); Neutrophils % (auto) 81.2 % (37.0-80.0); Platelet Count (auto) 223 10^3/uL (140-450); Red Blood Cells 5.41 10^6/uL (4.0-5.20); Red Cell Distribution Width 14.9 % (11.8-14.3)
[2023-12-05] MEDS: ALBUTEROL SULF 2.5 MG/0.5ML(0.5%) NEB SOLN NEB ONE (07:38)
[2023-12-05 07:50] LABS: Alanine Aminotransferase 14 U/L (7-40); Albumin 3.8 g/dL (3.2-4.8); Alkaline Phosphatase 37 U/L (46-116); Anion Gap 7 (5-15); Aspartate Aminotransferase 15 U/L (13-40); BUN/Creatinine Ratio 21.6 (10.0-20.0); Blood Urea Nitrogen 16 mg/dL (9-23); Calcium 9.3 mg/dL (8.7-10.4); Carbon Dioxide 29 mmol/L (20-30); Chloride 104 mmol/L (98-107); Glucose 85 mg/dL (74-106); Sodium 140 mmol/L (136-145)
[2023-12-05 07:51] LABS: Bilirubin, Total 0.9 mg/dL (0.2-1.0); Total Protein 5.9 g/dL (5.7-8.2)
[2023-12-05] MEDS: methylPREDNISolone SOD SUCC 125 MG/2 ML VL IV ONE (07:55)
[2023-12-05 09:08] LABS: Urine Bacteria None Seen /hpf (None Seen)
[2023-12-05 09:18] LABS: Urine Blood Negative /uL (Negative); Urine Clarity Clear (Clear); Urine Color Yellow (Yellow); Urine Protein, UAD Negative (Negative); Urine Specific Gravity 1.017 (1.001-1.035); Urine Urobilinogen Normal (Negative); Urine WBC 3 /hpf (0 - 5); Urine pH 7.5 (5.0-9.0)
[2023-12-05] MEDS: cloNIDine HCL 0.1 MG TAB PO ONE (09:45)
[2023-12-05] MEDS: FUROSEMIDE 40 MG/4 ML VIAL IV ONE (09:55)
[2023-12-05] MEDS: AZITHROMYCIN 500MG/ 250ML 250 ML IV ONE (09:56)
[2023-12-05] MEDS ORDERED: DOCUSATE SOD 100 MG CAP PO PRN (11:45)
[2023-12-05] MEDS: FUROSEMIDE 20 MG/2 ML VIAL IV SCH (11:45)
[2023-12-05] MEDS: HYDROmorphone HCL 2 MG/ML VL/or syr IV PRN (12:48)
[2023-12-05] MEDS: SODIUM CHLOR 0.9% PF (SALINE LOCK) 10ML VIAL/SYR IV SCH (14:04)
[2023-12-05 19:25] VITALS: PULSE 98; RESP 23; O2SAT 95
[2023-12-05 22:00] VITALS: PULSE 99; RESP 23; O2SAT 96
[2023-12-05] MEDS: IPRATROPIUM BROM 0.5 MG/2.5ML INH SOL NEB SCH (22:00)
[2023-12-05] MEDS: ALBUTEROL SULF 2.5 MG/0.5ML(0.5%) NEB SOLN NEB SCH (22:01)
[2023-12-05] MEDS: methylPREDNISolone SOD SUCC 40 MG/ML VL ONE (22:06)
[2023-12-05] MEDS: LORazepam 2MG/ML-1ML VIAL IV ONE (22:07)
[2023-12-05 22:10] VITALS: PULSE 104; RESP 22; O2SAT 99
[2023-12-05 22:19] VITALS: BP 160/99; PULSE 98; RESP 24; TEMP 98.4; O2SAT 95
[2023-12-05] MEDS: methylPREDNISolone SOD SUCC 125 MG/2 ML VL IV SCH (22:27)
[2023-12-05] MEDS: ONDANSETRON HCL 4 MG/2 ML VIAL IV PRN (22:30)
[2023-12-05] MEDS: hydrALAZINE HCL 20 MG/ML VL IV PRN (22:30)
[2023-12-06] VITALS (19 sets, daily range): BP systolic 118–163; BP diastolic 68–99; PULSE 72–115; RESP 14–22; TEMP 97.5–98.7; O2SAT 92–99
[2023-12-06 04:44] LABS: Basophils # (auto) 0.1 10 ^3/uL (0-0.2); Basophils % (auto) 1.2 % (0.0-2.0); Eosinophils # (auto) 0 10 ^3/uL (0-0.8); Hematocrit 44.9 % (36.0-46.0); Hemoglobin 15.1 g/dL (12.2-16.2); Lymphocytes # (auto) 0.4 10 ^3/uL (0.4-5.4); Lymphocytes % (auto) 3.2 % (10.0-50.0); Mean Corpuscular Hemoglobin 30.3 pg (28.0-32.0); Mean Corpuscular Hgb Conc. 33.6 g/dL (32.0-36.0); Mean Corpuscular Volume 90.1 fL (80.0-100.0); Monocytes # (auto) 0.5 10 ^3/uL (0-1.3); Monocytes % (auto) 4.3 % (0.0-12.0); Neutrophils # (auto) 10.3 10 ^3/uL (1.6-8.6); Neutrophils % (auto) 91.3 % (37.0-80.0); Nucleated Red Blood Cells % 0.1 %; Platelet Count (auto) 220 10^3/uL (140-450); Red Blood Cells 4.98 10^6/uL (4.0-5.20); White Blood Cell 11.3 10^3/uL (4.4-10.8)
[2023-12-06 05:01] LABS: Alanine Aminotransferase 12 U/L (7-40); Albumin 3.5 g/dL (3.2-4.8); Alkaline Phosphatase 32 U/L (46-116); Anion Gap 8 (5-15); Aspartate Aminotransferase 9 U/L (13-40); BUN/Creatinine Ratio 36.5 (10.0-20.0); Bilirubin, Total 0.6 mg/dL (0.2-1.0); Calcium 8.8 mg/dL (8.7-10.4); Carbon Dioxide 30 mmol/L (20-30); Chloride 104 mmol/L (98-107); Glucose 135 mg/dL (74-106); Magnesium 2.4 mg/dL (1.6-2.6); Potassium 3.9 mmol/L (3.5-5.1); Sodium 142 mmol/L (136-145); Total Protein 5.4 g/dL (5.7-8.2)
[2023-12-06 05:10] LABS: Blood Urea Nitrogen 31 mg/dL (9-23)
[2023-12-06] MEDS: cefTRIAXone 1GM/50ML D5W 50 ML IV SCH (08:11)
[2023-12-06] MEDS: ENOXAPARIN SOD 40 MG/0.4 ML SYRINGE SC SCH ×2 (08:12→22:18)
[2023-12-06] MEDS: AZITHROMYCIN 500MG/ 250ML 250 ML IV SCH (08:12)
[2023-12-06] MEDS ORDERED: MORPHINE SULFATE INJ 2 MG/ml SYRG IV PRN (12:30)
[2023-12-06] MEDS: methylPREDNISolone SOD SUCC 40 MG/ML VL IV SCH (12:55)
[2023-12-06] MEDS: LORazepam 2MG/ML-1ML VIAL IV ONE (17:27)
[2023-12-07] VITALS (13 sets, daily range): BP systolic 132–144; BP diastolic 80–94; PULSE 96–111; RESP 16–20; TEMP 36.7; O2SAT 93–99
[2023-12-07 07:05] LABS: Basophils # (auto) 0 10 ^3/uL (0-0.2); Basophils % (auto) 0.2 % (0.0-2.0); Eosinophils # (auto) 0 10 ^3/uL (0-0.8); Eosinophils % (auto) 0.1 % (0.0-7.0); Hematocrit 40.8 % (36.0-46.0); Hemoglobin 14.2 g/dL (12.2-16.2); Lymphocytes # (auto) 1.5 10 ^3/uL (0.4-5.4); Lymphocytes % (auto) 9.8 % (10.0-50.0); Mean Corpuscular Hemoglobin 30.8 pg (28.0-32.0); Mean Corpuscular Hgb Conc. 34.9 g/dL (32.0-36.0); Mean Corpuscular Volume 88.5 fL (80.0-100.0); Monocytes # (auto) 1.7 10 ^3/uL (0-1.3); Monocytes % (auto) 11.3 % (0.0-12.0); Neutrophils # (auto) 11.9 10 ^3/uL (1.6-8.6); Neutrophils % (auto) 78.6 % (37.0-80.0); Platelet Count (auto) 232 10^3/uL (140-450); Red Blood Cells 4.61 10^6/uL (4.0-5.20); Red Cell Distribution Width 14.5 % (11.8-14.3); White Blood Cell 15.2 10^3/uL (4.4-10.8)
[2023-12-07 07:35] LABS: Alanine Aminotransferase 12 U/L (7-40); Albumin 3.5 g/dL (3.2-4.8); Alkaline Phosphatase 31 U/L (46-116); Anion Gap 7 (5-15); Aspartate Aminotransferase 13 U/L (13-40); BUN/Creatinine Ratio 44.1 (10.0-20.0); Calcium 9.1 mg/dL (8.7-10.4); Carbon Dioxide 30 mmol/L (20-30); Chloride 103 mmol/L (98-107); Glucose 104 mg/dL (74-106); Magnesium 2.2 mg/dL (1.6-2.6); Potassium 3.5 mmol/L (3.5-5.1); Sodium 140 mmol/L (136-145)
[2023-12-07 07:36] LABS: Bilirubin, Total 0.6 mg/dL (0.2-1.0); Total Protein 5.3 g/dL (5.7-8.2)
[2023-12-07 07:40] LABS: Blood Urea Nitrogen 41 mg/dL (9-23)
[2023-12-07] MEDS: PANTOPRAZOLE 40 MG TAB PO ONE (10:13)
[2023-12-07] MEDS ORDERED: PANT40T PO (12:47)
[2023-12-07] MEDS ORDERED: PRED20TA2 PO (12:47)
[2023-12-07] MEDS ORDERED: AZIT-185 PO (12:47)
[2023-12-08] MEDS ORDERED: PANTOPRAZOLE 40 MG TAB PO SCH (06:00)
== END 2023-12-07 20:00 | disposition hospice, home (50) | DRG 177 ==
LOC: ER 04:01 → EDBD 04:01 → TELE 11:42 → TELE-CENTR 12-06 01:34
PROVIDERS: ADMIT Internal Medicine Pulmonary Disease; ATTEND Internal Medicine Pulmonary Disease
DX: J15.69 Pneumonia due to other Gram-negative bacteria (principal); E43 Unspecified severe protein-calorie malnutrition; J44.1 Chronic obstructive pulmonary disease with (acute) exacerbation; Z68.1 Body mass index [BMI] 19.9 or less, adult; R64 Cachexia; J44.0 Chronic obstructive pulmonary disease with (acute) lower respiratory infection; J96.10 Chronic respiratory failure, unspecified whether with hypoxia or hypercapnia; J15.9 Unspecified bacterial pneumonia; I11.0 Hypertensive heart disease with heart failure; I50.9 Heart failure, unspecified; F17.210 Nicotine dependence, cigarettes, uncomplicated; I48.0 Paroxysmal atrial fibrillation; Z90.49 Acquired absence of other specified parts of digestive tract; Z90.710 Acquired absence of both cervix and uterus; Z86.711 Personal history of pulmonary embolism; Z88.6 Allergy status to analgesic agent; Z88.8 Allergy status to other drugs, medicaments and biological substances
CPT/HCPCS: 36415; 71045; 80053; 81001; 82962; 83735; 83880; 84484; 85025; 87040; 93005; 93306; 94640; 96365; 96366; 96375; G0378; J2405

== ENCOUNTER 2024-02-01 05:37 | Inpatient (IN) | payer OTHER ==
[2024-02-01] VITALS (12 sets, daily range): BP systolic 135–155; BP diastolic 76–92; PULSE 90–112; RESP 15–22; TEMP 97.9–98.8; O2SAT 97–100
[~2024-02-01] VITALS: Ht 170.2 cm; Wt 38.4 kg
[~2024-02-01 05:37] MED LIST changes: -ALBUAER3 IN; +AZIT-185 PO; -AZIT500T66 PO; -IPRA0.00 IN; -LEVO500T91 PO; +PANT40T PO
--- NOTE | 2024-02-01 05:48 | ECG ---
[facility] Test Date: 2024-02-01 Test Time: 05:40:27 Pat Name: MIKE CHOWDARY Department: ER Room: Gender: F [employer] Apprentice: ER : [id number] Requested By: EMERGENCY EMERGENCY Order Number: [id number] Reading MD: Dimas [place] Measurements Intervals [place] Rate: 109 P: 86 HI: 109 QRS: 41 QRSD: 93 T: -85 QT: 318 QTc: 429 Interpretive Statements Sinus tachycardia Nonspecific repol abnormality, diffuse leads Electronically Signed On 02-01-2024 9:32:46 PDT by Dimas [place] Please click the below link to view image of tracing.
--- NOTE | 2024-02-01 06:16 | DVH ---
CHEST RADIOGRAPH Indication:SOB Technique: Single frontal view of the chest was obtained Comparison: None FINDINGS: Lines and Tubes: None Lungs: No focal consolidation. Pleura: No effusion. No pneumothorax. Cardiomediastinal contours: Unremarkable Bones: No acute osseous abnormality. IMPRESSION: 1. No acute cardiopulmonary disease.
[2024-02-01 06:37] LABS: Basophils # (auto) 0.1 10 ^3/uL (0-0.2); Basophils % (auto) 1.2 % (0.0-2.0); Eosinophils # (auto) 0.5 10 ^3/uL (0-0.8); Eosinophils % (auto) 4.6 % (0.0-7.0); Hematocrit 36.3 % (36.0-46.0); Hemoglobin 12.2 g/dL (12.2-16.2); Lymphocytes # (auto) 2.3 10 ^3/uL (0.4-5.4); Lymphocytes % (auto) 22.6 % (10.0-50.0); Mean Corpuscular Hemoglobin 30.9 pg (28.0-32.0); Mean Corpuscular Hgb Conc. 33.5 g/dL (32.0-36.0); Mean Corpuscular Volume 92.3 fL (80.0-100.0); Monocytes # (auto) 0.9 10 ^3/uL (0-1.3); Neutrophils # (auto) 6.3 10 ^3/uL (1.6-8.6); Neutrophils % (auto) 62.6 % (37.0-80.0); Nucleated Red Blood Cells % 0.1 %; Platelet Count (auto) 263 10^3/uL (140-450); Red Blood Cells 3.93 10^6/uL (4.0-5.20); Red Cell Distribution Width 15.3 % (11.8-14.3); White Blood Cell 10.1 10^3/uL (4.4-10.8)
[2024-02-01 06:43] LABS: Alanine Aminotransferase 11 U/L (7-40); Albumin 3.4 g/dL (3.2-4.8); Alkaline Phosphatase 43 U/L (46-116); Anion Gap 5 (5-15); Aspartate Aminotransferase 25 U/L (13-40); BUN/Creatinine Ratio 15.5 (10.0-20.0); Blood Urea Nitrogen 11 mg/dL (9-23); Calcium 9.1 mg/dL (8.7-10.4); Carbon Dioxide 29 mmol/L (20-31); Chloride 110 mmol/L (98-107); Glucose 90 mg/dL (74-106); Potassium 4.4 mmol/L (3.5-5.1); Sodium 144 mmol/L (136-145)
[2024-02-01 06:44] LABS: Bilirubin, Total 0.2 mg/dL (0.2-1.0); Total Protein 5.5 g/dL (5.7-8.2)
--- NOTE | 2024-02-01 06:54 | ED.PDOC ---
SOB-HPI HPI Comments A 86 year old female brought in by ambulance with the chief complaint of SOB onset today. Per EMS, patient was found trying to do a Nebulizer treatment and was unsuccessful. Patient was given a Nebulizer treatment on the field, prior to ED arrival. EMS also states the patient is from hospice care and seems there has not been a nurse for a few days. Patient has a past medical history of CHF, COPD, lung cancer and Emphysema. No other symptoms or modifying factors present at this time. Chief Complaint: Shortness of Breath Time Seen by MD: 06:25 Reviewed notes: Medications, Allergies Information Source: Emergency Med Personnel Mode of Arrival: EMS Severity: Moderate Timing: Hours Duration: Since onset History of: COPD Prehospital treatment: Treatment Associated Signs and Symptoms: Wheeze, Cough If cough with SOB: Productive Past Medical History PAST MEDICAL HISTORY: Cancer, CHF, COPD Past Medical History (Other): Emphysema Constitutional: denies: chills, diaphoresis, fatigue, fever, malaise, sweats, weakness, others EENTM: denies: blurred vision, double vision, ear bleeding, ear discharge, ear drainage, ear pain, ear ringing, eye pain, eye redness, hearing loss, mouth pain, mouth swelling, nasal discharge, nose bleeding, nose congestion, nose pain, photophobia, tearing, throat pain, throat swelling, voice changes, others Respiratory: reports: cough, shortness of breath, wheezing; denies: hemoptysis, orthopnea, SOB at rest, SOB with excertion, stridor, others Cardiovascular: denies: chest pain, dizzy spells, diaphoresis, Dyspnea on exertion, edema, irregular heart beat, left arm pain, lightheadedness, palpitations, PND, syncope, others Gastrointestinal: denies: abdomen distended, abdominal pain, blood streaked bowels, constipated, diarrhea, dysphagia, difficulty swallowing, hematemesis, melena, nausea, poor appetite, poor fluid intake, rectal bleeding, rectal pain, vomiting, others Genitourinary: denies: abnormal vagina bleeding, burning, dyspareunia, dysuria, flank pain, frequency, hematuria, incontinence, pain, , vagina discharge, urgency, others Neurological: denies: dizziness, fainting, headache, left sided numbness, left sided weakness, numbness, paresthesia, pre-existing deficit, right sided numbness, right sided weakness, seizure, speech problems, tingling, tremors, weakness, others Musculoskeletal: denies: back pain, gout, joint pain, joint swelling, muscle pain, muscle stiffness, neck pain, others Integumetry: denies: bruises, change in color, change in hair/nails, dryness, laceration, lesions, lumps, rash, wounds, others Allergic/Immunocompromised: denies: Difficulty Healing, Frequent Infections, Hives, Itching, others Hematologic/Lymphatic: denies: anemia, blood clots, easy bleeding, easy bruising, swollen glands, others Endocrine: denies: excessive hunger, excessive sweating, excessive thirst, excessive urination, flushing, intolerance to cold, intolerance to heat, unexplained weight gain, unexplained weight loss, others Psychiatric: denies: anxiety, bipolar disorder, depression, hopeless, panic disorder, schizophrenia, sleepless, suicidal, others All Other Systems: Reviewed and Negative Physical Exam General Appearance: Moderate Distress, Normal HEENT: Normal ENT Inspection, Pharynx Normal, TMs Normal Neck: Full Range of Motion, Non-Tender, Normal, Normal Inspection Respiratory: Chest Non-Tender, No Accessory Muscle Use, Respiratory Distress, Other (Coarse breath sounds) Cardiovascular: No Edema, No JVD, No Murmur, No Gallop, Normal Peripheral Pulses, Regular Rate/Rhythm Breast Exam: Deferred Gastrointestinal: No Organomegaly, Non Tender, No Pulsatile Mass, Normal Bowel Sounds, Soft Genitalia: Deferred Pelvic: Deferred Rectal: Deferred Extremities: No calf tenderness, Normal capillary refill, Normal inspection, Normal range of motion, Non-tender, No pedal edema Musculoskeletal : Apperance: Normal Neurologic: Alert, pneumatic tester II-XII nml as Tested, No Motor Deficits, Normal Affect, Normal Mood, No Sensory Deficits Cerebellar Function: NOT DONE Reflexes: NOT DONE Skin: Dry, Normal Color, Warm Peripheral Pulses: 3+ Radial (R), 3+ Radial (L) Lymphatic: No Adenopathy Was a procedure done? Was a procedure done?: No Differential Dx Differential Diagnosis: Anxiety, Asthma, Bronchitis, CHF, COPD X-Ray, Labs, Meds, VS Vital Signs Date Time Temp Pulse Resp B/P (MAP) Pulse Ox O2 Delivery O2 Flow Rate FiO2 02/01/24 06:57 18 100 Nasal Cannula* 4 36 02/01/24 06:25 Nasal Cannula* 4 36 02/01/24 05:55 98.8 104 17 190/104 (132) 100 98.8 02/01/24 05:42 97.4 110 26 188/107 (134) 98 02/01/24 05:42 97.4 110 26 188/107 (134) 98 97.4 02/01/24 05:40 109 Lab Test 02/01/24 06:02 Range/Units White Blood Count 10.1 4.4-10.8 10^3/uL Red Blood Count 3.93 L 4.0-5.20 10^6/uL Hemoglobin 12.2 12.2-16.2 g/dL Hematocrit 36.3 36.0-46.0 % Mean Corpuscular Volume 92.3 80.0-100.0 fL Mean Corpuscular Hemoglobin 30.9 28.0-32.0 pg Mean Corpuscular Hemoglobin Concent 33.5 32.0-36.0 g/dL Red Cell Distribution Width 15.3 H 11.8-14.3 % Platelet Count 263 140-450 10^3/uL Mean Platelet Volume 7.2 6.9-10.8 fL Neutrophils (%) (Auto) 62.6 37.0-80.0 % Lymphocytes (%) (Auto) 22.6 10.0-50.0 % Monocytes (%) (Auto) 9.0 0.0-12.0 % Eosinophils (%) (Auto) 4.6 0.0-7.0 % Basophils (%) (Auto) 1.2 0.0-2.0 % Neutrophils # (Auto) 6.3 1.6-8.6 10 ^3/uL Lymphocytes # (Auto) 2.3 0.4-5.4 10 ^3/uL Monocytes # (Auto) 0.9 0-1.3 10 ^3/uL Eosinophils # (Auto) 0.5 0-0.8 10 ^3/uL Basophils # (Auto) 0.1 0-0.2 10 ^3/uL Nucleated Red Blood Cells 0.1 % Sodium Level 144 136-145 mmol/L Potassium Level 4.4 3.5-5.1 mmol/L Chloride Level 110 H 98-107 mmol/L Carbon Dioxide Level 29 20-31 mmol/L Anion Gap 5 5-15 Blood Urea Nitrogen 11 9-23 mg/dL Creatinine 0.71 0.550-1.02 mg/dL Glomerular Filtration Rate Calc 83 >90 mL/min BUN/Creatinine Ratio 15.5 10.0-20.0 Serum Glucose 90 74-106 mg/dL Calcium Level 9.1 8.7-10.4 mg/dL Total Bilirubin 0.2 0.2-1.0 mg/dL Aspartate Amino Transferase (AST) 25 13-40 U/L Alanine Aminotransferase (ALT) 11 7-40 U/L Alkaline Phosphatase 43 L 46-116 U/L Troponin I High Sensitivity 5 </=34 ng/L B-Type Natriuretic Peptide Pending Total Protein 5.5 L 5.7-8.2 g/dL Albumin 3.4 3.2-4.8 g/dL Current Medications Medications (Trade) Dose Ordered Sig/Ellen Route Start Time Stop Time Status Last Admin Albuterol (Ventolin Medneb) 5 mg ONCE ONCE NEB 02/01/24 06:45 02/01/24 06:46 DC 02/01/24 06:57 Ipratropium [place] (Atrovent Medneb) 0.5 mg ONCE ONCE NEB 02/01/24 06:45 02/01/24 06:46 DC 02/01/24 06:57 CHEST RADIOGRAPH IMPRESSION: 1. No acute cardiopulmonary disease. Patient alert. Complaining of shortness a breath. COPD. Was given breathing treatment. Chest x-ray reviewed does not show any acute process. Was given steroid. Placed on oxygen. Counseled patient on effects of smoking cigarettes for 15 minutes. Blood pressure elevated pain Was given labetalol. EKG reviewed does not show any acute changes. Reviewed her previous visit. Explained to the patient. Time of 1ST Reevaluation: 06:55 Reevaluation 1ST: Unchanged Patient Education/Counseling: Diagnosis, Treatment, Prognosis Family Education/Counseling: No Family Present Departure 1 Departure Time of Disposition: 07:08 Impression: Primary Impression: COPD exacerbation Additional Impression: Hypertensive emergency Disposition: ADMITTED INPATIENT Admit to: Med Surg Condition: Guarded Critical Care Note Critical Care Time?: Yes (45 min-critical care time only) Stability Stability form required: No Heart Score Heart Score: Heart Score Response (Comments) Value History Slightly Suspicious 0 EKG Normal 0 Age >65 2 Risk Factors >3 or Hx ASHD 2 Troponin Normal limit 0 Total 4 I personally scribed for AKSHAT GR MD ([email or web address]) on 02/01/24 at 06:54. Electronically submitted by Jen Fong ([email or web address]). AKSHAT GR MD Feb 01, 2024 06:54
[2024-02-01] MEDS: IPRATROPIUM BROM 0.5 MG/2.5ML INH SOL NEB ONE (06:57)
[2024-02-01] MEDS: ALBUTEROL SULF 2.5 MG/0.5ML(0.5%) NEB SOLN NEB ONE (06:57)
[2024-02-01 07:28] LABS: Urine Bacteria None Seen /hpf (None Seen)
[2024-02-01 07:50] LABS: Urine Blood Negative /uL (Negative); Urine Clarity Clear (Clear); Urine Color Light-Yellow (Yellow); Urine Protein, UAD Negative (Negative); Urine Urobilinogen Normal (Negative)
[2024-02-01 08:00] LABS: Urine WBC 5 /hpf (0 - 5)
[2024-02-01 08:01] LABS: Urine Mucus FEW (None Seen)
[2024-02-01] MEDS: HYDROmorphone HCL 2 MG/ML VL/or syr IV ONE (09:28)
[2024-02-01] MEDS: HYDROcodone-ACET 10/325MG TAB PO ONE (09:28)
[2024-02-01] MEDS: methylPREDNISolone SOD SUCC 125 MG/2 ML VL IV ONE (09:28)
[2024-02-01] MEDS: LABETALOL HCL 20 MG/4 ML VL IV ONE (09:28)
[2024-02-01] MEDS ORDERED: ENOXAPARIN SOD 30 MG/0.3 ML SYRINGE SC SCH (10:00)
[2024-02-01] MEDS: IPRATROPIUM BROM 0.5 MG/2.5ML INH SOL NEB PRN (10:21)
[2024-02-01] MEDS: ALBUTEROL SULF 2.5 MG/0.5ML(0.5%) NEB SOLN NEB SCH (10:22)
[2024-02-01] MEDS: cefTRIAXone 1GM/50ML D5W 50 ML IV SCH (11:02)
--- NOTE | 2024-02-01 11:56 | DVHHP2 ---
History of Present Illness Reason for Visit: Shortness of breath History of Present Illness 86-year-old female brought in by ambulance with chief complaint of shortness of breaths. Per EMS patient was found trying to do a nebulizer treatment and was unsuccessful. Patient was given a nebulizer treatment in the field prior to ED arrival. EMS also states the patient is from hospice care and there seemed to not have been a nurse for a few days. Patient is unsure of what hospice company she uses. Patient is on chronic oxygen. Patient denies chest pain, headache, dizziness, diaphoresis, abdominal pain, no nausea, vomiting, fever, or chills endorsed by the patient. Patient was admitted for further evaluation medical management. Past Medical History COPD cancer, CHF, emphysema Past Surgical History None per patient Family History Reviewed noncontributory to the management of this case Smoke: No ALCOHOL: none Drugs: None Lives: Alone Review of Systems Constitutional: No: Fever, Chills, Sweats, Weakness, Malaise, Other Eyes: No: Pain, Vision change, Conjunctivae inflammation, Eyelid inflammation, Other, Redness Respiratory: Shortness of breath, Wheezing; No: Cough, Dry, SOB with excertion, Hemoptysis, Pleuritic Pain, Sputum, Wheezing, Other Cardiovascular: No: Chest Pain, Palpitations, Orthopnea, Paroxysmal Noc. Dyspne a, Edema, Lt Headedness, Other Gastrointestinal: No: Nausea, Vomiting, Abdominal Pain, Diarrhea, Constipation, Melena, Hematochezia, Other Genitourinary: No Dysuria, No Frequency, No Incontinence, No Hematuria, No Retention, No Other Musculoskeletal: back pain (Chronic back pain); No: other, neck pain, shoulder pain, arm pain, hand pain, leg pain, foot pain Skin: No: Rash, Lesions, Jaundice, Bruising, Other Neurological: No: Weakness, Numbness, Incoordination, Change in speech, Confusion, Seizures, Other Allergies: Coded Allergies: NO KNOWN ALLERGIES (Unverified , 02/01/24) Medications Current Medications Medications Dose Ordered Sig/Ellen Route Start Time Stop Time Status Last Admin Dose Admin Acetaminophen/ Hydrocodone Bitart 1 tab Q4HP PRN PO 02/01/24 10:00 Hydromorphone HCl 0.5 mg Q6HP PRN IV 02/01/24 10:00 Ondansetron HCl 4 mg Q4HP PRN IV 02/01/24 10:00 Enoxaparin Sodium 40 mg DAILY SC 02/01/24 10:00 UNV Albuterol 1.25 mg Q4HR NEB 02/01/24 10:00 02/01/24 10:22 1.25 MG Ipratropium [place] 0.5 mg Q4HPRN PRN NEB 02/01/24 10:00 02/01/24 10:21 0.5 MG Azithromycin 250 ml @ 125 mls/hr DAILY IV 02/01/24 11:00 Ceftriaxone Sodium 50 ml @ 100 mls/hr DAILY@09 IV 02/01/24 10:15 02/01/24 11:02 100 MLS/HR Exam Vital Signs Vital Signs Date Time Temp Pulse Resp B/P (MAP) Pulse Ox O2 Delivery O2 Flow Rate FiO2 02/01/24 10:28 90 21 100 02/01/24 10:22 98.3 135/76 4.0 36 98.3 02/01/24 10:22 Nasal Cannula General Appearance: Alert, Oriented X3, Cooperative, No acute distress HEENT: Atraumatic, PERRLA, EOMI, Mucous membr. moist/pink Respiratory: Clear to auscultation, Normal air movement Cardiovascular: Regular rate, Normal S1, Normal S2, No murmurs Abdominal: Normal bowel sounds, No tenderness, No hepatospenomegaly Extremities: No clubbing, No cyanosis, No edema, Normal pulses, No tenderness/swelling Skin: No rashes, No breakdown, No significant lesion Neuro: Normal gait, Normal speech, Strength at 5/5 X4 ext, Sensation intact, Cranial nerves 3-12 NL, Reflexes 2+ Psych/Mental Status: Mental status NL, Mood NL Labs/Xrays Labs, imaging and ED notes reviewed Labs Test 02/01/24 07:10 02/01/24 06:02 Range/Units Urine Color Light-yellow Yellow Urine Clarity Clear Clear Urine pH 6.0 5.0-9.0 Urine Specific [place] 1.010 1.001-1.035 Urine Protein Negative Negative Urine Ketones Negative Negative Urine Blood Negative Negative /uL Urine Nitrite Negative Negative Urine Bilirubin Negative Negative Urine Urobilinogen Normal Negative mg/dL Urine Leukocyte Esterase Negative Negative /uL Urine RBC 5 0 - 4 /hpf Urine WBC 5 0 - 5 /hpf Urine Squamous Epithelial Cells Few <5 /hpf Urine Bacteria None seen None Seen /hpf Urine Mucus Few None Seen Urine Glucose Normal Normal mg/dL White Blood Count 10.1 4.4-10.8 10^3/uL Red Blood Count 3.93 L 4.0-5.20 10^6/uL Hemoglobin 12.2 12.2-16.2 g/dL Hematocrit 36.3 36.0-46.0 % Mean Corpuscular Volume 92.3 80.0-100.0 fL Mean Corpuscular Hemoglobin 30.9 28.0-32.0 pg Mean Corpuscular Hemoglobin Concent 33.5 32.0-36.0 g/dL Red Cell Distribution Width 15.3 H 11.8-14.3 % Platelet Count 263 140-450 10^3/uL Mean Platelet Volume 7.2 6.9-10.8 fL Neutrophils (%) (Auto) 62.6 37.0-80.0 % Lymphocytes (%) (Auto) 22.6 10.0-50.0 % Monocytes (%) (Auto) 9.0 0.0-12.0 % Eosinophils (%) (Auto) 4.6 0.0-7.0 % Basophils (%) (Auto) 1.2 0.0-2.0 % Neutrophils # (Auto) 6.3 1.6-8.6 10 ^3/uL Lymphocytes # (Auto) 2.3 0.4-5.4 10 ^3/uL Monocytes # (Auto) 0.9 0-1.3 10 ^3/uL Eosinophils # (Auto) 0.5 0-0.8 10 ^3/uL Basophils # (Auto) 0.1 0-0.2 10 ^3/uL Nucleated Red Blood Cells 0.1 % Sodium Level 144 136-145 mmol/L Potassium Level 4.4 3.5-5.1 mmol/L Chloride Level 110 H 98-107 mmol/L Carbon Dioxide Level 29 20-31 mmol/L Anion Gap 5 5-15 Blood Urea Nitrogen 11 9-23 mg/dL Creatinine 0.71 0.550-1.02 mg/dL Glomerular Filtration Rate Calc 83 >90 mL/min BUN/Creatinine Ratio 15.5 10.0-20.0 Serum Glucose 90 74-106 mg/dL Calcium Level 9.1 8.7-10.4 mg/dL Total Bilirubin 0.2 0.2-1.0 mg/dL Aspartate Amino Transferase (AST) 25 13-40 U/L Alanine Aminotransferase (ALT) 11 7-40 U/L Alkaline Phosphatase 43 L 46-116 U/L Troponin I High Sensitivity 5 </=34 ng/L B-Type Natriuretic Peptide 148.67 0-100 pg/mL Total Protein 5.5 L 5.7-8.2 g/dL Albumin 3.4 3.2-4.8 g/dL Assessment/Plan Assessment/Plan Acute on chronic hypoxic respiratory failure, dependence on supplemental oxygen Admit to medical/surgical Supplemental oxygen, on 4 L nasal cannula Titrate to keep SpO2 greater than 92% Encouraged incentive spirometry Social service consult for possible placement status post discharge versus back home on hospice Antibiotics Encourage hydration Hypertensive urgency Hydralazine p.r.n. q.6 hours systolic blood pressure greater than 150 mmHg No home meds per patient, started on lisinopril Clonidine p.r.n. COPD exacerbation Given Solu-Medrol in the ER Albuterol/ipratropium q.4 hours Chronic CHF No home meds per patient FEN/PPX GI prophylaxis not indicated VTE prophylaxis-Lovenox Cardiac diet Plan discussed with: Patient My Orders Orders - PRANAY GARCIA Procedure Category Date Status Time Admit ADMIT 02/01/24 Transmitted 09:58 Code Status CODE 02/01/24 Transmitted 09:58 Vital Signs [facility] 02/01/24 In Process 09:58 Review Orders With [facility] 02/01/24 In Process Adm. 09:58 Maintain Bed Rest [facility] 02/01/24 In Process 09:58 Notify Of Changes [facility] 02/01/24 In Process From Base 09:58 Advance Directive [facility] 02/01/24 In Process 09:58 Basic Metabolic Panel LAB 02/02/24 Verified 04:00 Complete Blood Count LAB 02/02/24 Verified 04:00 Patient Condition ORDERS 02/01/24 Transmitted 09:58 Allergies VIKKI 02/01/24 In Process 09:58 Hydrocodone-Acet PHA 02/01/24 In Process 5/325mg Tab ([place] 10:00 Hydromorphone PHA 02/01/24 In Process Injection (Dilaudid 10:00 Ondansetron Hcl PHA 02/01/24 In Process (Zofran) 10:00 Enoxaparin Sodium PHA 02/01/24 Logged (Lovenox) 10:00 Cardiac DIET 02/01/24 Transmitted Diet-2gna,Lofat,Lochol Lunch Albuterol Medneb PHA 02/01/24 In Process (Ventolin Medneb) 10:00 Ipratropium Medneb PHA 02/01/24 In Process (Atrovent Medneb) 10:00 Med Percy Sub Treatment RT 02/01/24 Logged 09:58 Azithromycin 500mg/ PHA 02/01/24 In Process 250ml (Zithromax 50 11:00 Ceftriaxone 1gm/50ml PHA 02/01/24 In Process D5w (Rocephin) 10:15 Date of Service: Feb 01, 2024 Billing Provider: PRANAY GARCIA Common Visit Codes: [id number] INP/OBS CARE (HIGH) PRANAY GARCIA Feb 01, 2024 11:56
[2024-02-01] MEDS: AZITHROMYCIN 500MG/ 250ML 250 ML IV SCH (12:08)
[2024-02-01] MEDS: HYDROmorphone HCL 2 MG/ML VL/or syr IV PRN (12:54)
[2024-02-01] MEDS: LISINOPRIL 5 MG TAB PO ONE (15:28)
[2024-02-01] MEDS: ENOXAPARIN SOD 30 MG/0.3 ML SYRINGE SC ONE (15:29)
[2024-02-01] MEDS: cloNIDine HCL 0.1 MG TAB PO PRN (22:10)
[2024-02-02] VITALS (20 sets, daily range): BP systolic 138–156; BP diastolic 66–88; PULSE 88–108; RESP 16–28; TEMP 97.6–98.4; O2SAT 4–100
[2024-02-02] MEDS: ONDANSETRON HCL 4 MG/2 ML VIAL IV PRN (02:03)
[2024-02-02] MEDS: methylPREDNISolone SOD SUCC 125 MG/2 ML VL IV ONE (02:54)
[2024-02-02 06:11] LABS: Basophils # (auto) 0 10 ^3/uL (0-0.2); Basophils % (auto) 0.1 % (0.0-2.0); Eosinophils # (auto) 0 10 ^3/uL (0-0.8); Hematocrit 36.2 % (36.0-46.0); Hemoglobin 11.8 g/dL (12.2-16.2); Lymphocytes # (auto) 0.6 10 ^3/uL (0.4-5.4); Lymphocytes % (auto) 6.6 % (10.0-50.0); Mean Corpuscular Hemoglobin 31.1 pg (28.0-32.0); Mean Corpuscular Hgb Conc. 32.6 g/dL (32.0-36.0); Mean Corpuscular Volume 95.4 fL (80.0-100.0); Monocytes # (auto) 0.4 10 ^3/uL (0-1.3); Monocytes % (auto) 3.8 % (0.0-12.0); Neutrophils # (auto) 8.6 10 ^3/uL (1.6-8.6); Neutrophils % (auto) 89.5 % (37.0-80.0); Platelet Count (auto) 235 10^3/uL (140-450); Red Cell Distribution Width 15.1 % (11.8-14.3); White Blood Cell 9.6 10^3/uL (4.4-10.8)
[2024-02-02 06:15] LABS: Chloride 110 mmol/L (98-107); Potassium 5.1 mmol/L (3.5-5.1); Sodium 139 mmol/L (136-145)
[2024-02-02 06:17] LABS: Anion Gap 5 (5-15); Calcium 9.2 mg/dL (8.7-10.4); Carbon Dioxide 24 mmol/L (20-31)
[2024-02-02 06:22] LABS: BUN/Creatinine Ratio 18.3 (10.0-20.0); Blood Urea Nitrogen 13 mg/dL (9-23); Glucose 122 mg/dL (74-106)
[2024-02-02] MEDS: LISINOPRIL 5 MG TAB PO SCH (09:19)
[2024-02-02] MEDS: methylPREDNISolone SOD SUCC 40 MG/ML VL IV SCH (09:20)
[2024-02-02] MEDS: ENOXAPARIN SOD 30 MG/0.3 ML SYRINGE SC SCH (09:21)
--- NOTE | 2024-02-02 20:09 | DVHPN2 ---
Subjective 86-year-old female brought in by ambulance with chief complaint of shortness of breaths. Per EMS patient was found trying to do a nebulizer treatment and was unsuccessful. Patient was given a nebulizer treatment in the field prior to ED arrival. EMS also states the patient is from hospice care and there seemed to not have been a nurse for a few days. Patient is unsure of what hospice company she uses. Patient is on chronic oxygen. Patient denies chest pain, headache, dizziness, diaphoresis, abdominal pain, no nausea, vomiting, fever, or chills endorsed by the patient. Patient was admitted for further evaluation medical management. She is in bed resting on oxygen Changes from previous H/P or p: No Changes Eyes: No Pain, No Vision change, No Conjunctivae inflammation, No Eyelid inflammation, No Other, No Redness Cardiovascular: No Chest Pain, No Palpitations, No Orthopnea, No Paroxysmal Noc. Dyspnea, No Edema, No Lt Headedness, No Other Respiratory: No Cough, No Dry; Shortness of breath; No SOB with excertion; W heezing; No Hemoptysis, No Pleuritic Pain, No Sputum, No Other Gastrointestinal: No Nausea, No Vomiting, No Abdominal Pain, No Diarrhea, No Constipation, No Melena, No Hematochezia, No Other Genitourinary: No Dysuria, No Frequency, No Incontinence, No Hematuria, No Retention, No Other Musculoskeletal: No other, No neck pain, No shoulder pain, No arm pain; back pain (Chronic back pain); No hand pain, No leg pain, No foot pain Skin: No Rash, No Lesions, No Jaundice, No Bruising, No Other Objective Vitals Vital Signs Date Time Temp Pulse Resp B/P (MAP) Pulse Ox O2 Delivery O2 Flow Rate FiO2 02/02/24 18:45 96 20 97 02/02/24 18:37 Nasal Cannula* 4 36 02/02/24 17:46 131/80 02/02/24 17:00 97.7 97.7 Intake/Output Intake and Output 02/02/24 05:00 Intake Total 300 ml Balance 300 ml Intake Oral 300 ml # Voids 7 Medications Current Medications Medications Dose Ordered Sig/Ellen Route Start Time Stop Time Status Last Admin Dose Admin Acetaminophen/ Hydrocodone Bitart 1 tab Q4HP PRN PO 02/01/24 10:00 Hydromorphone HCl 0.5 mg Q6HP PRN IV 02/01/24 10:00 02/02/24 17:16 0.5 MG Ondansetron HCl 4 mg Q4HP PRN IV 02/01/24 10:00 02/02/24 02:03 4 MG Albuterol 1.25 mg Q4HR NEB 02/01/24 10:00 02/02/24 18:34 1.25 MG Ipratropium [place] 0.5 mg Q4HPRN PRN NEB 02/01/24 10:00 02/02/24 18:34 0.5 MG Azithromycin 250 ml @ 125 mls/hr DAILY IV 02/01/24 11:00 02/02/24 09:22 125 MLS/HR Ceftriaxone Sodium 50 ml @ 100 mls/hr DAILY@09 IV 02/01/24 10:15 02/02/24 09:22 100 MLS/HR Lisinopril 5 mg DAILY PO 02/02/24 10:00 02/02/24 09:19 5 MG Clonidine HCl 0.1 mg Q2HP PRN PO 02/01/24 12:00 02/01/24 22:10 0.1 MG Enoxaparin Sodium 30 mg DAILY@1000 SC 02/02/24 10:00 02/02/24 09:21 30 MG Methylprednisolone Sodium Succinate 40 mg BID IV 02/02/24 10:00 02/02/24 09:20 40 MG Laboratory Results Laboratory Tests 02/02/24 05:20 Chemistry Test 02/02/24 05:20 Calcium Level 9.2 mg/dL (8.7-10.4) Urinalysis Test 02/01/24 07:10 Urine Color Light-yellow (Yellow) Urine Clarity Clear (Clear) Urine pH 6.0 (5.0-9.0) Urine Specific [place] 1.010 (1.001-1.035) Urine Protein Negative (Negative) Urine Ketones Negative (Negative) Urine Blood Negative /uL (Negative) Urine Nitrite Negative (Negative) Urine Bilirubin Negative (Negative) Urine Urobilinogen Normal mg/dL (Negative) Urine Leukocyte Esterase Negative /uL (Negative) Urine RBC 5 /hpf (0 - 4) Urine WBC 5 /hpf (0 - 5) Urine Squamous Epithelial Cells Few /hpf (<5) Urine Bacteria None seen /hpf (None Seen) Urine Mucus Few (None Seen) Urine Glucose Normal mg/dL (Normal) Assessment/Plan Assessment/Plan Acute on chronic hypoxic respiratory failure, dependence on supplemental oxygen Admit to medical/surgical Supplemental oxygen, on 4 L nasal cannula Titrate to keep SpO2 greater than 92% Encouraged incentive spirometry Social service consult for possible placement status post discharge versus back home on hospice Antibiotics Encourage hydration Hypertensive urgency Hydralazine p.r.n. q.6 hours systolic blood pressure greater than 150 mmHg No home meds per patient, started on lisinopril Clonidine p.r.n. COPD exacerbation Given Solu-Medrol in the ER Albuterol/ipratropium q.4 hours Chronic CHF No home meds per patient FEN/PPX GI prophylaxis not indicated VTE prophylaxis-Lovenox Cardiac diet Plan discussed with: Patient Date of Service: Feb 02, 2024 Billing Provider: SHAJI YEUNG MD Common Visit Codes: [id number] INP/OBS CARE(HIGH) SHAJI YEUNG MD Feb 02, 2024 20:09
[2024-02-02] MEDS: Ensure Enlive Vanilla 8oz Bottle PO SCH (22:00)
[2024-02-03] VITALS (22 sets, daily range): BP systolic 138–161; BP diastolic 60–89; PULSE 72–100; RESP 16–24; TEMP 97.7–98.8; O2SAT 92–100
[2024-02-03] MEDS: HYDROcodone-ACET 5/325MG TAB PO PRN (02:08)
--- NOTE | 2024-02-03 18:36 | DVHPN2 ---
Subjective 86-year-old female brought in by ambulance with chief complaint of shortness of breaths. Per EMS patient was found trying to do a nebulizer treatment and was unsuccessful. Patient was given a nebulizer treatment in the field prior to ED arrival. EMS also states the patient is from hospice care and there seemed to not have been a nurse for a few days. Patient is unsure of what hospice company she uses. Patient is on chronic oxygen. Patient denies chest pain, headache, dizziness, diaphoresis, abdominal pain, no nausea, vomiting, fever, or chills endorsed by the patient. Patient was admitted for further evaluation medical management. She is in bed resting on oxygen Changes from previous H/P or p: No Changes Eyes: No Pain, No Vision change, No Conjunctivae inflammation, No Eyelid inflammation, No Other, No Redness Cardiovascular: No Chest Pain, No Palpitations, No Orthopnea, No Paroxysmal Noc. Dyspnea, No Edema, No Lt Headedness, No Other Respiratory: No Cough, No Dry; Shortness of breath; No SOB with excertion; W heezing; No Hemoptysis, No Pleuritic Pain, No Sputum, No Other Gastrointestinal: No Nausea, No Vomiting, No Abdominal Pain, No Diarrhea, No Constipation, No Melena, No Hematochezia, No Other Genitourinary: No Dysuria, No Frequency, No Incontinence, No Hematuria, No Retention, No Other Musculoskeletal: No other, No neck pain, No shoulder pain, No arm pain; back pain (Chronic back pain); No hand pain, No leg pain, No foot pain Skin: No Rash, No Lesions, No Jaundice, No Bruising, No Other Objective Vitals Vital Signs Date Time Temp Pulse Resp B/P (MAP) Pulse Ox O2 Delivery O2 Flow Rate FiO2 02/03/24 18:16 82 24 96 02/03/24 18:08 Nasal Cannula* 4 36 02/03/24 17:01 97.7 138/79 (98) 97.7 Intake/Output Intake and Output 02/03/24 05:00 Intake Total 300 ml Balance 300 ml IV Total 300 ml # Voids 2 Medications Current Medications Medications Dose Ordered Sig/Ellen Route Start Time Stop Time Status Last Admin Dose Admin Acetaminophen/ Hydrocodone Bitart 1 tab Q4HP PRN PO 02/01/24 10:00 02/03/24 02:08 1 TAB Hydromorphone HCl 0.5 mg Q6HP PRN IV 02/01/24 10:00 02/03/24 11:19 0.5 MG Ondansetron HCl 4 mg Q4HP PRN IV 02/01/24 10:00 02/02/24 02:03 4 MG Albuterol 1.25 mg Q4HR NEB 02/01/24 10:00 02/03/24 18:21 1.25 MG Ipratropium [place] 0.5 mg Q4HPRN PRN NEB 02/01/24 10:00 02/03/24 18:21 0.5 MG Azithromycin 250 ml @ 125 mls/hr DAILY IV 02/01/24 11:00 02/03/24 11:23 125 MLS/HR Ceftriaxone Sodium 50 ml @ 100 mls/hr DAILY@09 IV 02/01/24 10:15 02/03/24 09:21 100 MLS/HR Lisinopril 5 mg DAILY PO 02/02/24 10:00 02/03/24 09:33 5 MG Clonidine HCl 0.1 mg Q2HP PRN PO 02/01/24 12:00 02/01/24 22:10 0.1 MG Enoxaparin Sodium 30 mg DAILY@1000 SC 02/02/24 10:00 02/03/24 09:30 30 MG Methylprednisolone Sodium Succinate 40 mg BID IV 02/02/24 10:00 02/03/24 09:22 40 MG Enteral Nutritional Formula 240 ml BID PO 02/02/24 22:00 Laboratory Results Laboratory Tests 02/02/24 05:20 Urinalysis Test 02/01/24 07:10 Urine Color Light-yellow (Yellow) Urine Clarity Clear (Clear) Urine pH 6.0 (5.0-9.0) Urine Specific [place] 1.010 (1.001-1.035) Urine Protein Negative (Negative) Urine Ketones Negative (Negative) Urine Blood Negative /uL (Negative) Urine Nitrite Negative (Negative) Urine Bilirubin Negative (Negative) Urine Urobilinogen Normal mg/dL (Negative) Urine Leukocyte Esterase Negative /uL (Negative) Urine RBC 5 /hpf (0 - 4) Urine WBC 5 /hpf (0 - 5) Urine Squamous Epithelial Cells Few /hpf (<5) Urine Bacteria None seen /hpf (None Seen) Urine Mucus Few (None Seen) Urine Glucose Normal mg/dL (Normal) Assessment/Plan Assessment/Plan Acute on chronic hypoxic respiratory failure, dependence on supplemental oxygen Admit to medical/surgical Supplemental oxygen, on 4 L nasal cannula Titrate to keep SpO2 greater than 92% Encouraged incentive spirometry Social service consult for possible placement status post discharge versus back home on hospice Antibiotics Encourage hydration Hypertensive urgency Hydralazine p.r.n. q.6 hours systolic blood pressure greater than 150 mmHg No home meds per patient, started on lisinopril Clonidine p.r.n. COPD exacerbation Given Solu-Medrol in the ER Albuterol/ipratropium q.4 hours Chronic CHF No home meds per patient FEN/PPX GI prophylaxis not indicated VTE prophylaxis-Lovenox Cardiac diet Plan discussed with: Other (nurse) My Orders Orders - SHAJI YEUNG MD Procedure Category Date Status Time Nutritional PHA 02/02/24 In Process Supplements (Ensure 22:00 Date of Service: Feb 03, 2024 Billing Provider: SHAJI YEUNG MD Common Visit Codes: [id number] INP/OBS CARE(HIGH) SHAJI YEUNG MD Feb 03, 2024 18:36
[2024-02-04] VITALS (21 sets, daily range): BP systolic 128–197; BP diastolic 69–115; PULSE 76–120; RESP 14–24; TEMP 97.7–97.8; O2SAT 92–100
[2024-02-04] MEDS: hydrALAZINE HCL 20 MG/ML VL IV ONE (11:38)
[2024-02-04] MEDS: LORazepam 2MG/ML-1ML VIAL IV ONE (11:42)
--- NOTE | 2024-02-04 12:19 | DVH ---
CHEST RADIOGRAPH Indication:SOB Technique: Single frontal view of the chest was obtained COMPARISON: XY CHEST PORTABLE on DOS: 12/05/23, XY CHEST PORTABLE on DOS: 10/12/23, XY CHEST PORTABLE on DOS: 09/13/23 FINDINGS: Lines and Tubes: None Lungs: Diffuse increased interstitial prominence. Pleura: No effusion. No pneumothorax. Cardiomediastinal contours: Vascular calcifications of the aorta Bones: Unremarkable IMPRESSION: Pulmonary vascular congestion.
--- NOTE | 2024-02-04 20:09 | DVHPN2 ---
Subjective 86-year-old female brought in by ambulance with chief complaint of shortness of breaths. Per EMS patient was found trying to do a nebulizer treatment and was unsuccessful. Patient was given a nebulizer treatment in the field prior to ED arrival. EMS also states the patient is from hospice care and there seemed to not have been a nurse for a few days. Patient is unsure of what hospice company she uses. Patient is on chronic oxygen. Patient denies chest pain, headache, dizziness, diaphoresis, abdominal pain, no nausea, vomiting, fever, or chills endorsed by the patient. Patient was admitted for further evaluation medical management. Severe short of breath this morning, placed on non rebreather, seems more anxiety related STAT CXR ordered and reviewed myself with no acute abnormalities I gave ativan stat Reviewed: Care Plan Changes from previous H/P or p: Changes Eyes: No Pain, No Vision change, No Conjunctivae inflammation, No Eyelid inflammation, No Other, No Redness Cardiovascular: No Chest Pain, No Palpitations, No Orthopnea, No Paroxysmal Noc. Dyspnea, No Edema, No Lt Headedness, No Other Respiratory: No Cough, No Dry; Shortness of breath; No SOB with excertion; W heezing; No Hemoptysis, No Pleuritic Pain, No Sputum, No Other Gastrointestinal: No Nausea, No Vomiting, No Abdominal Pain, No Diarrhea, No Constipation, No Melena, No Hematochezia, No Other Genitourinary: No Dysuria, No Frequency, No Incontinence, No Hematuria, No Retention, No Other Musculoskeletal: No other, No neck pain, No shoulder pain, No arm pain; back pain (Chronic back pain); No hand pain, No leg pain, No foot pain Skin: No Rash, No Lesions, No Jaundice, No Bruising, No Other Objective Vitals Vital Signs Date Time Temp Pulse Resp B/P (MAP) Pulse Ox O2 Delivery O2 Flow Rate FiO2 02/04/24 18:34 102 22 98 02/04/24 18:28 Nasal Cannula 6.0 02/04/24 18:28 44 02/04/24 17:00 97.8 131/74 (93) 97.8 Intake/Output Intake and Output 02/04/24 05:00 Intake Total 1545 ml Balance 1545 ml Intake Oral 1245 ml IV Total 300 ml # Voids 10 # Bowel Movements 1 General Appearance: Alert, severe distress HEENT: Atraumatic, PERRLA Lungs: Clear to auscultation, Normal air movement Abdomen: Normal bowel sounds Rectal: Deferred Extremities: No edema, No tenderness/swelling Neuro: Normal speech Medications Current Medications Medications Dose Ordered Sig/Ellen Route Start Time Stop Time Status Last Admin Dose Admin Acetaminophen/ Hydrocodone Bitart 1 tab Q4HP PRN PO 02/01/24 10:00 02/03/24 02:08 1 TAB Hydromorphone HCl 0.5 mg Q6HP PRN IV 02/01/24 10:00 02/04/24 15:59 0.5 MG Ondansetron HCl 4 mg Q4HP PRN IV 02/01/24 10:00 02/02/24 02:03 4 MG Albuterol 1.25 mg Q4HR NEB 02/01/24 10:00 02/04/24 18:27 1.25 MG Ipratropium [place] 0.5 mg Q4HPRN PRN NEB 02/01/24 10:00 02/04/24 18:27 0.5 MG Azithromycin 250 ml @ 125 mls/hr DAILY IV 02/01/24 11:00 02/04/24 11:14 125 MLS/HR Ceftriaxone Sodium 50 ml @ 100 mls/hr DAILY@09 IV 02/01/24 10:15 02/04/24 08:51 100 MLS/HR Lisinopril 5 mg DAILY PO 02/02/24 10:00 02/04/24 09:03 5 MG Clonidine HCl 0.1 mg Q2HP PRN PO 02/01/24 12:00 02/04/24 01:53 0.1 MG Enoxaparin Sodium 30 mg DAILY@1000 SC 02/02/24 10:00 02/04/24 08:57 30 MG Methylprednisolone Sodium Succinate 40 mg BID IV 02/02/24 10:00 02/04/24 08:53 40 MG Enteral Nutritional Formula 240 ml BID PO 02/02/24 22:00 02/04/24 09:03 240 ML Laboratory Results Laboratory Tests 02/02/24 05:20 Urinalysis Test 02/01/24 07:10 Urine Color Light-yellow (Yellow) Urine Clarity Clear (Clear) Urine pH 6.0 (5.0-9.0) Urine Specific [place] 1.010 (1.001-1.035) Urine Protein Negative (Negative) Urine Ketones Negative (Negative) Urine Blood Negative /uL (Negative) Urine Nitrite Negative (Negative) Urine Bilirubin Negative (Negative) Urine Urobilinogen Normal mg/dL (Negative) Urine Leukocyte Esterase Negative /uL (Negative) Urine RBC 5 /hpf (0 - 4) Urine WBC 5 /hpf (0 - 5) Urine Squamous Epithelial Cells Few /hpf (<5) Urine Bacteria None seen /hpf (None Seen) Urine Mucus Few (None Seen) Urine Glucose Normal mg/dL (Normal) Assessment/Plan Assessment/Plan Acute on chronic hypoxic respiratory failure, dependence on supplemental oxygen Admit to medical/surgical Supplemental oxygen, on 4 L nasal cannula Titrate to keep SpO2 greater than 92% Encouraged incentive spirometry Social service consult for possible placement status post discharge versus back home on hospice Antibiotics Encourage hydration Severe short of breath this morning, placed on non rebreather, seems more anxiety related STAT CXR ordered and reviewed myself with no acute abnormalities I gave ativan stat Hypertensive urgency Hydralazine p.r.n. q.6 hours systolic blood pressure greater than 150 mmHg No home meds per patient, started on lisinopril Clonidine p.r.n. COPD exacerbation Given Solu-Medrol in the ER Albuterol/ipratropium q.4 hours Chronic CHF No home meds per patient FEN/PPX GI prophylaxis not indicated VTE prophylaxis-Lovenox Cardiac diet Plan discussed with: Patient My Orders Orders - SHAJI YEUNG MD Procedure Category Date Status Time Chest Xray 1 View XY 02/04/24 Resulted 11:26 Cleanse Wound With VIKKI 02/04/24 In Process Wound Clean 15:43 Apply Z-Guard VIKKI 02/04/24 In Process 15:43 Date of Service: Feb 04, 2024 Billing Provider: SHAJI YEUNG MD Common Visit Codes: [id number] INP/OBS CARE(HIGH) SHAJI YEUNG MD Feb 04, 2024 20:09
[2024-02-05] VITALS (15 sets, daily range): BP systolic 145–154; BP diastolic 83–98; PULSE 93–117; RESP 13–30; TEMP 97.8–98.1; O2SAT 28–100
[2024-02-05 05:16] LABS: Anion Gap 7 (5-15); Carbon Dioxide 29 mmol/L (20-31); Chloride 106 mmol/L (98-107); Potassium 4.5 mmol/L (3.5-5.1); Sodium 142 mmol/L (136-145)
[2024-02-05 05:17] LABS: Calcium 9.9 mg/dL (8.7-10.4)
[2024-02-05 05:22] LABS: BUN/Creatinine Ratio 32.8 (10.0-20.0); Blood Urea Nitrogen 22 mg/dL (9-23); Glucose 133 mg/dL (74-106)
--- NOTE | 2024-02-05 12:29 | DVHPN2 ---
Subjective Patient reports having subjective dyspnea. Reviewed: Care Plan Changes from previous H/P or p: No Changes General: Per HPI Eyes: No Pain, No Vision change, No Conjunctivae inflammation, No Eyelid inflammation, No Other, No Redness Cardiovascular: No Chest Pain, No Palpitations, No Orthopnea, No Paroxysmal Noc. Dyspnea, No Edema, No Lt Headedness, No Other Respiratory: No Cough, No Dry; Shortness of breath; No SOB with excertion, No Wheezing, No Hemoptysis, No Pleuritic Pain, No Sputum, No Other Gastrointestinal: No Nausea, No Vomiting, No Abdominal Pain, No Diarrhea, No Constipation, No Melena, No Hematochezia, No Other Genitourinary: No Dysuria, No Frequency, No Incontinence, No Hematuria, No Retention, No Other Musculoskeletal: No other, No neck pain, No shoulder pain, No arm pain; back pain (Chronic back pain); No hand pain, No leg pain, No foot pain Skin: No Rash, No Lesions, No Jaundice, No Bruising, No Other Objective Vitals Vital Signs Date Time Temp Pulse Resp B/P (MAP) Pulse Ox O2 Delivery O2 Flow Rate FiO2 02/05/24 09:58 121/71 02/05/24 09:57 114 18 02/05/24 09:27 97 02/05/24 09:20 Nasal Cannula 4.0 02/05/24 09:20 36 02/05/24 00:52 98.1 98.1 Intake/Output Intake and Output 02/05/24 07:00 Intake Total 500 ml Balance 500 ml Intake Oral 200 ml IV Total 300 ml # Voids 11 General Appearance: Alert, Oriented X3 (Oriented x2), mild distress HEENT: Atraumatic, PERRLA Lungs: Other (Diminished breath sounds bilaterally. Nasal cannula at 2 liters/minute.) Abdomen: Normal bowel sounds Rectal: Deferred Extremities: No edema, No tenderness/swelling Neuro: Normal speech Skin: Dry, Intact Psych/Mental Status: Mental status NL (Probably at baseline), Other (Some anxiety) Medications Current Medications Medications Dose Ordered Sig/Ellen Route Start Time Stop Time Status Last Admin Dose Admin Acetaminophen/ Hydrocodone Bitart 1 tab Q4HP PRN PO 02/01/24 10:00 02/03/24 02:08 1 TAB Hydromorphone HCl 0.5 mg Q6HP PRN IV 02/01/24 10:00 02/05/24 09:57 0.5 MG Ondansetron HCl 4 mg Q4HP PRN IV 02/01/24 10:00 02/02/24 02:03 4 MG Azithromycin 250 ml @ 125 mls/hr DAILY IV 02/01/24 11:00 02/05/24 11:41 125 MLS/HR Ceftriaxone Sodium 50 ml @ 100 mls/hr DAILY@09 IV 02/01/24 10:15 02/05/24 09:47 100 MLS/HR Lisinopril 5 mg DAILY PO 02/02/24 10:00 02/05/24 09:58 5 MG Clonidine HCl 0.1 mg Q2HP PRN PO 02/01/24 12:00 02/04/24 01:53 0.1 MG Enoxaparin Sodium 30 mg DAILY@1000 SC 02/02/24 10:00 02/05/24 10:05 30 MG Enteral Nutritional Formula 240 ml BID PO 02/02/24 22:00 02/05/24 10:03 240 ML Methylprednisolone Sodium Succinate 40 mg DAILY IV 02/06/24 10:00 UNV Furosemide 20 mg DAILY IV 02/06/24 10:00 UNV Ipratropium [place] 0.5 mg Q6HWA NEB 02/05/24 18:00 UNV Levalbuterol HCl 1.25 mg Q6HWA NEB 02/05/24 18:00 UNV Budesonide 0.5 mg BID NEB 02/05/24 22:00 UNV Laboratory Results Laboratory Tests 02/02/24 05:20 02/05/24 04:40 Chemistry Test 02/05/24 04:40 Calcium Level 9.9 mg/dL (8.7-10.4) Urinalysis Test 02/01/24 07:10 Urine Color Light-yellow (Yellow) Urine Clarity Clear (Clear) Urine pH 6.0 (5.0-9.0) Urine Specific [place] 1.010 (1.001-1.035) Urine Protein Negative (Negative) Urine Ketones Negative (Negative) Urine Blood Negative /uL (Negative) Urine Nitrite Negative (Negative) Urine Bilirubin Negative (Negative) Urine Urobilinogen Normal mg/dL (Negative) Urine Leukocyte Esterase Negative /uL (Negative) Urine RBC 5 /hpf (0 - 4) Urine WBC 5 /hpf (0 - 5) Urine Squamous Epithelial Cells Few /hpf (<5) Urine Bacteria None seen /hpf (None Seen) Urine Mucus Few (None Seen) Urine Glucose Normal mg/dL (Normal) Labs and/or images reviewed: Labs reviewed by me, Image(s) reviewed by me Assessment/Plan Assessment/Plan Impression: -acute on chronic hypoxic respiratory failure -acute on chronic diastolic heart failure -COPD with probable exacerbation -primary hypertension -cachexia Plan: -IV diuresis -decrease Solu-Medrol to 40 mg IV daily given improvement with wheezing -change albuterol to Atrovent and Xopenex given tachycardia and reported anxiety -add Pulmicort b.i.d. -continue antihypertensives -repeat labs in a.m., replete electrolytes as needed -social service consultation for discharge planning: Patient refusing penitentiary facility as well as being placed on hospice. Physical therapy evaluation has been placed. Patient will be considered for discharge with home health services. Total time spent with patient discussing and formulating plan of care: 35 minutes. This medical document was created using an electronic medical record system with [employer] dictation system. Although this document has been carefully reviewed, there may still be some phonetic and typographical errors. These areas are purely typographical due to imperfections of the software programs, and do not reflect any compromise in the patient's medical care. Plan discussed with: Patient, Other (RN) My Orders Orders - SINDY LO CATALYST OPERATOR GASOLINE Procedure Category Date Status Time Methylprednisolone PHA 02/06/24 Logged Sod Succ (Solu Medrol 10:00 Furosemide Injection PHA 02/06/24 Logged (Lasix Injection) 10:00 Furosemide Injection PHA 02/05/24 Logged (Lasix Injection) 12:15 Ipratropium Medneb PHA 02/05/24 Logged (Atrovent Medneb) 18:00 Levalbuterol Hcl PHA 02/05/24 Logged (Xopenex Medneb) 18:00 Basic Metabolic Panel LAB 02/06/24 Verified 04:00 Magnesium LAB 02/06/24 Verified 04:00 Budesonide PHA 02/05/24 Logged (Inhalation) 22:00 Pt Request For Service PT 02/05/24 Verified 12:16 * Middleware Administrator CONS 02/05/24 Verified Consult Date of Service: Feb 05, 2024 Billing Provider: SINDY LO NP Common Visit Codes: [id number] INP/OBS CARE(HIGH) SINDY LO NP Feb 05, 2024 12:29
[2024-02-05] MEDS: FUROSEMIDE 20 MG/2 ML VIAL IV ONE (13:29)
[2024-02-05] MEDS: BUDESONIDE (INHALATION) 0.5 MG/2 ML NEB NEB SCH (18:31)
[2024-02-05] MEDS: LEVALBUTEROL HCL 1.25 MG/3 ML NEB NEB SCH (18:32)
[2024-02-05] MEDS: IPRATROPIUM BROM 0.5 MG/2.5ML INH SOL NEB SCH (18:32)
[2024-02-06] VITALS (15 sets, daily range): BP systolic 143–166; BP diastolic 83–91; PULSE 67–109; RESP 16–22; TEMP 97.8–98.7; O2SAT 92–100
[2024-02-06 05:28] LABS: Chloride 105 mmol/L (98-107); Potassium 4.3 mmol/L (3.5-5.1); Sodium 143 mmol/L (136-145)
[2024-02-06 05:29] LABS: Anion Gap 5 (5-15); Carbon Dioxide 33 mmol/L (20-31)
[2024-02-06 05:30] LABS: Calcium 9.5 mg/dL (8.7-10.4)
[2024-02-06 05:34] LABS: Blood Urea Nitrogen 31 mg/dL (9-23); Glucose 96 mg/dL (74-106)
[2024-02-06 05:35] LABS: Magnesium 2.3 mg/dL (1.6-2.6)
--- NOTE | 2024-02-06 08:56 | DVH ---
CHEST RADIOGRAPH Indication:chf Technique: Single frontal view of the chest was obtained COMPARISON: XY CHEST XRAY 1 VIEW on DOS: 02/04/24, XY CHEST PORTABLE on DOS: 12/05/23, XY CHEST PORTAB LE on DOS: 10/12/23, XY CHEST XRAY 1 VIEW on DOS: 02/04/24 FINDINGS: Lines and Tubes: None Lungs: Diffuse increased interstitial prominence. Pleura: No effusion. No pneumothorax. Cardiomediastinal contours: Vascular calcifications of the aorta Bones: Unremarkable IMPRESSION: Pulmonary vascular congestion, unchanged.
[2024-02-06] MEDS: FUROSEMIDE 20 MG/2 ML VIAL IV SCH (09:02)
[2024-02-06] MEDS: methylPREDNISolone SOD SUCC 40 MG/ML VL IV SCH (09:11)
--- NOTE | 2024-02-06 10:18 | DVHPN2 ---
Subjective Patient reports having subjective dyspnea. Reviewed: Care Plan, H&P, Labs Changes from previous H/P or p: No Changes General: Per HPI Eyes: No Pain, No Vision change, No Conjunctivae inflammation, No Eyelid inflammation, No Other, No Redness Cardiovascular: No Chest Pain, No Palpitations, No Orthopnea, No Paroxysmal Noc. Dyspnea, No Edema, No Lt Headedness, No Other Respiratory: No Cough, No Dry; Shortness of breath; No SOB with excertion, No Wheezing, No Hemoptysis, No Pleuritic Pain, No Sputum, No Other Gastrointestinal: No Nausea, No Vomiting, No Abdominal Pain, No Diarrhea, No Constipation, No Melena, No Hematochezia, No Other Genitourinary: No Dysuria, No Frequency, No Incontinence, No Hematuria, No Retention, No Other Musculoskeletal: No other, No neck pain, No shoulder pain, No arm pain; back pain (Chronic back pain); No hand pain, No leg pain, No foot pain Skin: No Rash, No Lesions, No Jaundice, No Bruising, No Other Objective Vitals Vital Signs Date Time Temp Pulse Resp B/P (MAP) Pulse Ox O2 Delivery O2 Flow Rate FiO2 02/06/24 09:13 143/85 02/06/24 08:19 98.2 94 17 94 98.2 02/06/24 08:00 Nasal Cannula* 4 36 Intake/Output Intake and Output 02/06/24 07:00 Intake Total 2714 ml Output Total 250 ml Balance 2464 ml Intake Oral 2414 ml IV Total 300 ml Output Urine Total 250 ml # Voids 17 # Bowel Movements 1 General Appearance: Alert, Oriented X3 (Oriented x2), mild distress HEENT: Atraumatic, PERRLA Lungs: Other (Diminished breath sounds bilaterally. Nasal cannula at 2 liters/minute.) Abdomen: Normal bowel sounds Rectal: Deferred Extremities: No edema, No tenderness/swelling Neuro: Normal speech Skin: Dry, Intact Psych/Mental Status: Mental status NL (Probably at baseline), Other (Some anxiety) Medications Current Medications Medications Dose Ordered Sig/Ellen Route Start Time Stop Time Status Last Admin Dose Admin Acetaminophen/ Hydrocodone Bitart 1 tab Q4HP PRN PO 02/01/24 10:00 02/03/24 02:08 1 TAB Hydromorphone HCl 0.5 mg Q6HP PRN IV 02/01/24:00 02/06/24 05:31 0.5 MG Ondansetron HCl 4 mg Q4HP PRN IV 02/01/24 10:00 02/02/24 02:03 4 MG Azithromycin 250 ml @ 125 mls/hr DAILY IV 02/01/24 11:00 02/05/24 11:41 125 MLS/HR Ceftriaxone Sodium 50 ml @ 100 mls/hr DAILY@09 IV 02/01/24 10:15 02/06/24 09:11 100 MLS/HR Lisinopril 5 mg DAILY PO 02/02/24 10:00 02/06/24 09:13 5 MG Clonidine HCl 0.1 mg Q2HP PRN PO 02/01/24 12:00 02/04/24 01:53 0.1 MG Enoxaparin Sodium 30 mg DAILY@1000 SC 02/02/24 10:00 02/06/24 09:12 30 MG Enteral Nutritional Formula 240 ml BID PO 02/02/24 22:00 02/06/24 09:38 240 ML Methylprednisolone Sodium Succinate 40 mg DAILY IV 02/06/24 10:00 02/06/24 09:11 40 MG Furosemide 20 mg DAILY IV 02/06/24 10:00 Ipratropium [place] 0.5 mg Q6HWA NEB 02/05/24 18:00 02/06/24 06:31 0.5 MG Levalbuterol HCl 1.25 mg Q6HWA NEB 02/05/24 18:00 02/06/24 06:31 1.25 MG Budesonide 0.5 mg BID NEB 02/05/24 22:00 02/06/24 06:31 0.5 MG Laboratory Results Laboratory Tests 02/02/24 05:20 02/06/24 04:57 Chemistry Test 02/06/24 04:57 Calcium Level 9.5 mg/dL (8.7-10.4) Magnesium Level 2.3 mg/dL (1.6-2.6) Urinalysis Test 02/01/24 07:10 Urine Color Light-yellow (Yellow) Urine Clarity Clear (Clear) Urine pH 6.0 (5.0-9.0) Urine Specific [place] 1.010 (1.001-1.035) Urine Protein Negative (Negative) Urine Ketones Negative (Negative) Urine Blood Negative /uL (Negative) Urine Nitrite Negative (Negative) Urine Bilirubin Negative (Negative) Urine Urobilinogen Normal mg/dL (Negative) Urine Leukocyte Esterase Negative /uL (Negative) Urine RBC 5 /hpf (0 - 4) Urine WBC 5 /hpf (0 - 5) Urine Squamous Epithelial Cells Few /hpf (<5) Urine Bacteria None seen /hpf (None Seen) Urine Mucus Few (None Seen) Urine Glucose Normal mg/dL (Normal) Labs and/or images reviewed: Labs reviewed by me, Image(s) reviewed by me Assessment/Plan Assessment/Plan Impression: -acute on chronic hypoxic respiratory failure -acute on chronic diastolic heart failure -COPD with probable exacerbation -primary hypertension -cachexia Plan: -events: Patient continues to want to be discharged home. Social service consultation has been placed. Apparently, there has been multiple EPS reports regarding the patient's home living situation. Patient is refusing retirement facility as well as hospice. Patient will have room air ABG ordered, hopefully to establish home health services and O2 DME. SpO2 on room air noted to be 86% -decrease Solu-Medrol to 40 mg IV daily given improvement with wheezing -change albuterol to Atrovent and Xopenex given tachycardia and reported anxiety -Pulmicort b.i.d. -continue antihypertensives , change Lasix to p.o. -repeat labs in a.m., replete electrolytes as needed -social service consultation for discharge planning: Patient refusing retirement facility as well as being placed on hospice. Physical therapy evaluation has been placed. Patient will be considered for discharge with home health services. Total time spent with patient discussing and formulating plan of care: 35 minutes. Total time spent with patient and family regarding advance care plannin minutes. This medical document was created using an electronic medical record system with [employer] dictation system. Although this document has been carefully reviewed, there may still be some phonetic and typographical errors. These areas are purely typographical due to imperfections of the software programs, and do not reflect any compromise in the patient's medical care. Plan discussed with: Patient, Other (RN) My Orders Orders - SINDY LO SENIOR VALIDATION ENGINEER Procedure Category Date Status Time Methylprednisolone PHA 02/06/24 In Process Sod Succ (Solu Medrol 10:00 Furosemide Injection PHA 02/06/24 In Process (Lasix Injection) 10:00 Ipratropium Medneb PHA 02/05/24 In Process (Atrovent Medneb) 18:00 Levalbuterol Hcl PHA 02/05/24 In Process (Xopenex Medneb) 18:00 Budesonide PHA 02/05/24 In Process (Inhalation) 22:00 Pt Request For Service PT 02/05/24 Logged 12:16 * Health Insurance Agent CONS 02/05/24 Transmitted Consult Chest Xray 1 View XY 02/06/24 Resulted 08:21 Abg W/ Co-Ox RT 02/06/24 Logged 09:57 Ss Eval For Home CONS 02/06/24 Transmitted Oxygen Date of Service: Feb 06, 2024 Billing Provider: SINDY LO NP Common Visit Codes: [id number] INP/OBS CARE(HIGH) Secondary Visit Codes: [id number] CARE PLAN 30 MINUTES SINDY LO NP Feb 06, 2024 10:17
[2024-02-07] VITALS (17 sets, daily range): BP systolic 125–150; BP diastolic 66–82; PULSE 74–97; RESP 15–21; TEMP 97.5–98.2; O2SAT 92–100
[2024-02-07 07:33] LABS: Chloride 105 mmol/L (98-107); Potassium 4.6 mmol/L (3.5-5.1); Sodium 144 mmol/L (136-145)
[2024-02-07 07:34] LABS: Anion Gap 4 (5-15); Calcium 9.3 mg/dL (8.7-10.4); Carbon Dioxide 35 mmol/L (20-31)
[2024-02-07 07:39] LABS: Glucose 88 mg/dL (74-106)
[2024-02-07 07:40] LABS: BUN/Creatinine Ratio 53.3 (10.0-20.0); Blood Urea Nitrogen 32 mg/dL (9-23)
[2024-02-07] MEDS: FUROSEMIDE 40 MG TAB PO ONE (10:25)
--- NOTE | 2024-02-07 14:19 | DVHPN2 ---
Subjective Patient reports that her breathing has improved. Reviewed: Care Plan, H&P, Labs Changes from previous H/P or p: Changes General: Per HPI Eyes: No Pain, No Vision change, No Conjunctivae inflammation, No Eyelid inflammation, No Other, No Redness Cardiovascular: No Chest Pain, No Palpitations, No Orthopnea, No Paroxysmal Noc. Dyspnea, No Edema, No Lt Headedness, No Other Respiratory: No Cough, No Dry; Shortness of breath; No SOB with excertion, No Wheezing, No Hemoptysis, No Pleuritic Pain, No Sputum, No Other Gastrointestinal: No Nausea, No Vomiting, No Abdominal Pain, No Diarrhea, No Constipation, No Melena, No Hematochezia, No Other Genitourinary: No Dysuria, No Frequency, No Incontinence, No Hematuria, No Retention, No Other Musculoskeletal: No other, No neck pain, No shoulder pain, No arm pain; back pain (Chronic back pain); No hand pain, No leg pain, No foot pain Skin: No Rash, No Lesions, No Jaundice, No Bruising, No Other Objective Vitals Vital Signs Date Time Temp Pulse Resp B/P (MAP) Pulse Ox O2 Delivery O2 Flow Rate FiO2 02/07/24 12:02 85 18 98 02/07/24 11:57 Nasal Cannula* 4 36 02/07/24 10:25 135/66 02/07/24 05:00 97.5 97.5 Intake/Output Intake and Output 02/07/24 06:59 Intake Total 1200 ml Output Total 800 ml Balance 400 ml Intake Oral 900 ml IV Total 300 ml Output Urine Total 800 ml # Voids 3 General Appearance: Alert, Oriented X3 (Oriented x2), mild distress HEENT: Atraumatic, PERRLA Lungs: Other (Diminished breath sounds bilaterally. Nasal cannula at 2 liters/minute.) Abdomen: Normal bowel sounds Rectal: Deferred Extremities: No edema, No tenderness/swelling Neuro: Normal speech Skin: Dry, Intact Psych/Mental Status: Mental status NL (Probably at baseline), Other (Some anxiety) Medications Current Medications Medications Dose Ordered Sig/Ellen Route Start Time Stop Time Status Last Admin Dose Admin Acetaminophen/ Hydrocodone Bitart 1 tab Q4HP PRN PO 02/01/24 10:00 02/03/24 02:08 1 TAB Hydromorphone HCl 0.5 mg Q6HP PRN IV 02/01/24 10:00 02/07/24 04:01 0.5 MG Ondansetron HCl 4 mg Q4HP PRN IV 02/01/24 10:00 02/02/24 02:03 4 MG Azithromycin 250 ml @ 125 mls/hr DAILY IV 02/01/24 11:00 02/07/24 10:00 125 MLS/HR Ceftriaxone Sodium 50 ml @ 100 mls/hr DAILY@09 IV 02/01/24 10:15 02/07/24 10:23 100 MLS/HR Lisinopril 5 mg DAILY PO 02/02/24 10:00 02/07/24 10:25 5 MG Clonidine HCl 0.1 mg Q2HP PRN PO 02/01/24 12:00 02/04/24 01:53 0.1 MG Enoxaparin Sodium 30 mg DAILY@1000 SC 02/02/24 10:00 02/07/24 10:24 30 MG Enteral Nutritional Formula 240 ml BID PO 02/02/24 22:00 02/07/24 10:28 240 ML Methylprednisolone Sodium Succinate 40 mg DAILY IV 02/06/24 10:00 02/07/24 10:24 40 MG Furosemide 20 mg DAILY IV 02/06/24 10:00 Ipratropium [place] 0.5 mg Q6HWA [facility] 02/05/24 18:00 02/07/24 11:57 0.5 MG Levalbuterol HCl 1.25 mg Q6HWA NEB 02/05/24 18:00 02/07/24 11:57 1.25 MG Budesonide 0.5 mg BID NEB 02/05/24 22:00 02/07/24 06:25 0.5 MG Laboratory Results Laboratory Tests 02/02/24 05:20 02/07/24 06:33 Chemistry Test 02/07/24 06:33 Calcium Level 9.3 mg/dL (8.7-10.4) Urinalysis Test 02/01/24 07:10 Urine Color Light-yellow (Yellow) Urine Clarity Clear (Clear) Urine pH 6.0 (5.0-9.0) Urine Specific [place] 1.010 (1.001-1.035) Urine Protein Negative (Negative) Urine Ketones Negative (Negative) Urine Blood Negative /uL (Negative) Urine Nitrite Negative (Negative) Urine Bilirubin Negative (Negative) Urine Urobilinogen Normal mg/dL (Negative) Urine Leukocyte Esterase Negative /uL (Negative) Urine RBC 5 /hpf (0 - 4) Urine WBC 5 /hpf (0 - 5) Urine Squamous Epithelial Cells Few /hpf (<5) Urine Bacteria None seen /hpf (None Seen) Urine Mucus Few (None Seen) Urine Glucose Normal mg/dL (Normal) Labs and/or images reviewed: Labs reviewed by me, Image(s) reviewed by me Assessment/Plan Assessment/Plan Impression: -acute on chronic hypoxic respiratory failure -acute on chronic diastolic heart failure -COPD with probable exacerbation -primary hypertension -cachexia Plan: -events: No events overnight. Patient ambulated approximately 3 ft with physical therapy. Patient reports that she feels better than yesterday. -decrease Solu-Medrol to 40 mg IV daily given improvement with wheezing -change albuterol to Atrovent and Xopenex given tachycardia and reported anxiety -Pulmicort b.i.d. -continue diuresis -repeat labs in a.m., replete electrolytes as needed -social service consultation for discharge planning: Patient refusing long term facility as well as being placed on hospice. Physical therapy evaluation has been placed. Patient will be considered for discharge with home health services. Total time spent with patient discussing and formulating plan of care: 35 minutes. This medical document was created using an electronic medical record system with [employer] dictation system. Although this document has been carefully reviewed, there may still be some phonetic and typographical errors. These areas are purely typographical due to imperfections of the software programs, and do not reflect any compromise in the patient's medical care. Plan discussed with: Patient, Other (RN) My Orders Orders - SINDY LO NP Procedure Category Date Status Time Chest Xray 1 View XY 02/08/24 Verified 04:00 Date of Service: Feb 07, 2024 Billing Provider: SINDY LO NP Common Visit Codes: [id number] INP/OBS CARE(HIGH) SINDY LO NP Feb 07, 2024 14:19
[2024-02-08] VITALS (16 sets, daily range): BP systolic 122–150; BP diastolic 65–87; PULSE 75–102; RESP 16–24; TEMP 97.5–98.7; O2SAT 92–99
--- NOTE | 2024-02-08 04:53 | DVH ---
CHEST RADIOGRAPH Indication:chf Technique: Single frontal view of the chest was obtained Comparison: XY CHEST XRAY 1 VIEW on DOS: 02/06/24, XY CHEST XRAY 1 VIEW on DOS: 02/04/24, XY CHEST PO RTABLE on DOS: 12/05/23 FINDINGS: Lines and Tubes: None Lungs: Pulmonary congestion unchanged. Pleura: No effusion. No pneumothorax. Cardiomediastinal contours: Unremarkable Bones: No acute osseous abnormality. IMPRESSION: 1. Stable pulmonary congestion.
[2024-02-08 07:26] LABS: Chloride 105 mmol/L (98-107); Potassium 4.3 mmol/L (3.5-5.1); Sodium 144 mmol/L (136-145)
[2024-02-08 07:27] LABS: Anion Gap 7 (5-15); Carbon Dioxide 32 mmol/L (20-31)
[2024-02-08 07:28] LABS: Calcium 9.1 mg/dL (8.7-10.4)
[2024-02-08 07:32] LABS: BUN/Creatinine Ratio 40.7 (10.0-20.0); Blood Urea Nitrogen 24 mg/dL (9-23); Glucose 91 mg/dL (74-106)
[2024-02-08] MEDS ORDERED: PRED20TA2 PO (14:07)
--- NOTE | 2024-02-08 14:11 | DVHDS2 ---
Discharge Summary Date of Admission Feb 01, 2024 at 09:58 Date of Discharge: Feb 08, 2024 Admitting Diagnosis COPD exacerbation Labs/Diagnostic Data: Laboratory Results Test 02/08/24 06:24 02/06/24 11:10 02/06/24 04:57 02/02/24 05:20 Sodium Level 144 mmol/L (136-145) Potassium Level 4.3 mmol/L (3.5-5.1) Chloride Level 105 mmol/L (98-107) Carbon Dioxide Level 32 mmol/L (20-31) Anion Gap 7 (5-15) Blood Urea Nitrogen 24 mg/dL (9-23) Creatinine 0.59 mg/dL (0.550-1.02) Glomerular Filtration Rate Calc 92 mL/min (>90) BUN/Creatinine Ratio 40.7 (10.0-20.0) Serum Glucose 91 mg/dL (74-106) Calcium Level 9.1 mg/dL (8.7-10.4) Blood Gas Specimen Type Arterial Blood Gas Sample Site Left radial Blood Gas Patient Temperature 37.0 Arterial Blood Date Drawn [id number] Arterial Blood pH 7.533 (7.350-7.450) Arterial Blood Partial Pressure CO2 36.2 mmHg (32.0-45.0) Arterial Blood Partial Pressure O2 46.1 mmHg (83.0-108.0) Arterial Blood HCO3 29.8 mmol/L (21.0-28.0) Arterial Blood Oxygen Saturation 83.5 % (94.0-98.0) Arterial Blood Base Excess 7.0 mmol/L (-2.0-3.0) Arterial Blood Oxyhemoglobin 83.0 % (94.0-98.0) Arterial Blood Carboxyhemoglobin 0.3 % (0.5-1.5) Arterial Blood Methemoglobin 0.3 % (0.0-1.5) Amanuel Test Yes Blood Gas Total Hemoglobin 14.50 g/dL (12.0-16.0) Blood Gas Modality Room air FiO2 % 21.0 Blood Gas Critical Value Read Back Yes Blood Gas Notified Whom Staci lo np Blood Gas Notified Time [id number] Blood Gas Notified By Inocencia messina rrt Magnesium Level 2.3 mg/dL (1.6-2.6) White Blood Count 9.6 10^3/uL (4.4-10.8) Red Blood Count 3.80 10^6/uL (4.0-5.20) Hemoglobin 11.8 g/dL (12.2-16.2) Hematocrit 36.2 % (36.0-46.0) Mean Corpuscular Volume 95.4 fL (80.0-100.0) Mean Corpuscular Hemoglobin 31.1 pg (28.0-32.0) Mean Corpuscular Hemoglobin Concent 32.6 g/dL (32.0-36.0) Red Cell Distribution Width 15.1 % (11.8-14.3) Platelet Count 235 10^3/uL (140-450) Mean Platelet Volume 7.2 fL (6.9-10.8) Neutrophils (%) (Auto) 89.5 % (37.0-80.0) Lymphocytes (%) (Auto) 6.6 % (10.0-50.0) Monocytes (%) (Auto) 3.8 % (0.0-12.0) Eosinophils (%) (Auto) 0.0 % (0.0-7.0) Basophils (%) (Auto) 0.1 % (0.0-2.0) Neutrophils # (Auto) 8.6 10 ^3/uL (1.6-8.6) Lymphocytes # (Auto) 0.6 10 ^3/uL (0.4-5.4) Monocytes # (Auto) 0.4 10 ^3/uL (0-1.3) Eosinophils # (Auto) 0 10 ^3/uL (0-0.8) Basophils # (Auto) 0 10 ^3/uL (0-0.2) Nucleated Red Blood Cells 0.0 % Test 02/01/24 07:10 02/01/24 06:02 Urine Color Light-yellow (Yellow) Urine Clarity Clear (Clear) Urine pH 6.0 (5.0-9.0) Urine Specific [place] 1.010 (1.001-1.035) Urine Protein Negative (Negative) Urine Ketones Negative (Negative) Urine Blood Negative /uL (Negative) Urine Nitrite Negative (Negative) Urine Bilirubin Negative (Negative) Urine Urobilinogen Normal mg/dL (Negative) Urine Leukocyte Esterase Negative /uL (Negative) Urine RBC 5 /hpf (0 - 4) Urine WBC 5 /hpf (0 - 5) Urine Squamous Epithelial Cells Few /hpf (<5) Urine Bacteria None seen /hpf (None Seen) Urine Mucus Few (None Seen) Urine Glucose Normal mg/dL (Normal) Total Bilirubin 0.2 mg/dL (0.2-1.0) Aspartate Amino Transferase (AST) 25 U/L (13-40) Alanine Aminotransferase (ALT) 11 U/L (7-40) Alkaline Phosphatase 43 U/L (46-116) Troponin I High Sensitivity 5 ng/L (</=34) B-Type Natriuretic Peptide 148.67 pg/mL (0-100) Total Protein 5.5 g/dL (5.7-8.2) Albumin 3.4 g/dL (3.2-4.8) Other Laboratory Tests 02/08/24 06:24 02/02/24 05:20 Brief Hx & Hospital Course: HPI Comments A 86 year old female brought in by ambulance with the chief complaint of SOB onset today. Per EMS, patient was found trying to do a Nebulizer treatment and was unsuccessful. Patient was given a Nebulizer treatment on the field, prior to ED arrival. EMS also states the patient is from hospice care and seems there has not been a nurse for a few days. Patient has a past medical history of CHF, COPD, lung cancer and Emphysema. No other symptoms or modifying factors present at this time. Course of hospitalization: Patient was treated with IV diuresis, bronchodilators, IV Solu-Medrol. Physical therapy was implemented with the patient. The patient's clinical status has improved. Challenges were found with discharge planning given the patient was not want to be back on hospice. The patient is also refusing to be transferred to a senior living facility. Social service consultation has been placed. Apparently, the patient's brother, Jan, we will be assessing the patient at home. The patient will be discharged home today with home health services. Patient will be continued on O2 supplementation at 2 liters/minute. The patient was agreeable with discharge plan. All questions answered. Physical examination General: Alert and Oriented x3. No acute distress. Well-nourished. Eyes: EOMI. Anicteric. HENT: Moist mucous membranes. Lungs: Clear to auscultation bilaterally. No accessory muscle use. Cardiovascular: Regular rate and rhythm. No murmur. No JVD. Abdomen: Soft, non-tender and non-distended. No palpable masses. Extremities: No edema. Non-tender. Skin: No rashes or lesions. Warm. Neurologic: No focal neurological deficits. CN II-XII grossly intact, but not individually tested. Psychiatric: Cooperative. Appropriate mood and affect. Total time spent with patient discussing and formulating plan of care: 35 minutes. This medical document was created using an electronic medical record system with [employer] dictation system. Although this document has been carefully reviewed, there may still be some phonetic and typographical errors. These areas are purely typographical due to imperfections of the software programs, and do not reflect any compromise in the patient's medical care. Condition at Discharge: Fair Final Diagnosis/Problems List Acute On chronic hypoxic respiratory failure Secondary Diagnosis: -acute on chronic diastolic heart failure -COPD with probable exacerbation -primary hypertension -cachexia Discharge Disposition: Home with Health Services Discharge Instruct/Medications Diet: Cardiac 2g Na,low cholest Activity: No Restrictions, As Tolerated Follow Up/Referral: PCP in 1-2 weeks Medications: Refer to medication reconciliation form 36 Discharge Statement: "Patient was advised to return to the ER or call 911 if any headaches, dizziness, shortness of breath, chest pain, abdominal pain, bleeding, fevers, or worsening of medical condition. Patient was counseled about treatment plan, medications, possible side effects, patientverbalized understanding. All questions were answered to the best of my ability. This discharge took greater then 30 minutes in planning, reviewing documentation, counseling the patient, and discussing with other team members." ASSESSMENT ASSESSMENT Assessment Acute On chronic hypoxic respiratory failure Date of Service: Feb 08, 2024 Billing Provider: SINDY LO NP Common Visit Codes: 58207-OEV/OBS DISCH DAY >30min SINDY LO NP Feb 08, 2024 14:11
[2024-02-09] VITALS (13 sets, daily range): BP systolic 111–137; BP diastolic 69–76; PULSE 65–107; RESP 16–22; TEMP 97.7–98.4; O2SAT 91–99
[2024-02-09 06:27] LABS: Anion Gap 4 (5-15); Carbon Dioxide 32 mmol/L (20-31); Chloride 105 mmol/L (98-107); Potassium 4.2 mmol/L (3.5-5.1); Sodium 141 mmol/L (136-145)
[2024-02-09 06:28] LABS: Calcium 9.1 mg/dL (8.7-10.4)
[2024-02-09 06:33] LABS: Blood Urea Nitrogen 26 mg/dL (9-23); Glucose 93 mg/dL (74-106)
--- NOTE | 2024-02-09 22:33 | DVHPN2 ---
Reviewed: Care Plan, H&P, Labs General: Per HPI Eyes: No Pain, No Vision change, No Conjunctivae inflammation, No Eyelid inflammation, No Other, No Redness Cardiovascular: No Chest Pain, No Palpitations, No Orthopnea, No Paroxysmal Noc. Dyspnea, No Edema, No Lt Headedness, No Other Respiratory: No Cough, No Dry; Shortness of breath; No SOB with excertion, No Wheezing, No Hemoptysis, No Pleuritic Pain, No Sputum, No Other Gastrointestinal: No Nausea, No Vomiting, No Abdominal Pain, No Diarrhea, No Constipation, No Melena, No Hematochezia, No Other Genitourinary: No Dysuria, No Frequency, No Incontinence, No Hematuria, No Retention, No Other Musculoskeletal: No other, No neck pain, No shoulder pain, No arm pain; back pain (Chronic back pain); No hand pain, No leg pain, No foot pain Skin: No Rash, No Lesions, No Jaundice, No Bruising, No Other Objective Vitals Vital Signs Date Time Temp Pulse Resp B/P (MAP) Pulse Ox O2 Delivery O2 Flow Rate FiO2 02/09/24 20:00 Nasal Cannula* 4 36 02/09/24 19:20 86 20 99 02/09/24 16:55 122/72 02/09/24 16:48 97.7 97.7 Intake/Output Intake and Output 02/09/24 07:00 Intake Total 1500 ml Balance 1500 ml Intake Oral 1200 ml IV Total 300 ml General Appearance: Alert, Oriented X3 (Oriented x2), mild distress HEENT: Atraumatic, PERRLA Lungs: Other (Diminished breath sounds bilaterally. Nasal cannula at 2 liters/minute.) Abdomen: Normal bowel sounds Rectal: Deferred Extremities: No edema, No tenderness/swelling Neuro: Normal speech Skin: Dry, Intact Psych/Mental Status: Mental status NL (Probably at baseline), Other (Some anxiety) Medications Current Medications Medications Dose Ordered Sig/Ellen Route Start Time Stop Time Status Last Admin Dose Admin Acetaminophen/ Hydrocodone Bitart 1 tab Q4HP PRN PO 02/01/24 10:00 02/03/24 02:08 1 TAB Hydromorphone HCl 0.5 mg Q6HP PRN IV 02/01/24 10:00 02/09/24 16:25 0.5 MG Ondansetron HCl 4 mg Q4HP PRN IV 02/01/24 10:00 02/02/24 02:03 4 MG Azithromycin 250 ml @ 125 mls/hr DAILY IV 02/01/24 11:00 02/09/24 09:25 125 MLS/HR Ceftriaxone Sodium 50 ml @ 100 mls/hr DAILY@09 IV 02/01/24 10:15 02/09/24 09:26 100 MLS/HR Lisinopril 5 mg DAILY PO 02/02/24 10:00 02/09/24 09:27 5 MG Clonidine HCl 0.1 mg Q2HP PRN PO 02/01/24 12:00 02/04/24 01:53 0.1 MG Enoxaparin Sodium 30 mg DAILY@1000 SC 02/02/24 10:00 02/09/24 09:40 30 MG Enteral Nutritional Formula 240 ml BID PO 02/02/24 22:00 02/09/24 09:42 240 ML Methylprednisolone Sodium Succinate 40 mg DAILY IV 02/06/24 10:00 02/09/24 09:40 40 MG Furosemide 20 mg DAILY IV 02/06/24 10:00 02/09/24 09:40 20 MG Ipratropium [place] 0.5 mg Q6HWA NEB 02/05/24 18:00 02/09/24 19:10 0.5 MG Levalbuterol HCl 1.25 mg Q6HWA NEB 02/05/24 18:00 02/09/24 19:11 1.25 MG Budesonide 0.5 mg BID NEB 02/05/24 22:00 02/09/24 19:10 0.5 MG Laboratory Results Laboratory Tests 02/02/24 05:20 02/09/24 05:48 Chemistry Test 02/09/24 05:48 Calcium Level 9.1 mg/dL (8.7-10.4) Urinalysis Test 02/01/24 07:10 Urine Color Light-yellow (Yellow) Urine Clarity Clear (Clear) Urine pH 6.0 (5.0-9.0) Urine Specific [place] 1.010 (1.001-1.035) Urine Protein Negative (Negative) Urine Ketones Negative (Negative) Urine Blood Negative /uL (Negative) Urine Nitrite Negative (Negative) Urine Bilirubin Negative (Negative) Urine Urobilinogen Normal mg/dL (Negative) Urine Leukocyte Esterase Negative /uL (Negative) Urine RBC 5 /hpf (0 - 4) Urine WBC 5 /hpf (0 - 5) Urine Squamous Epithelial Cells Few /hpf (<5) Urine Bacteria None seen /hpf (None Seen) Urine Mucus Few (None Seen) Urine Glucose Normal mg/dL (Normal) CLARA COTTO DO Feb 09, 2024 22:33
[2024-02-10] VITALS (15 sets, daily range): BP systolic 101–137; BP diastolic 48–78; PULSE 73–117; RESP 16–22; TEMP 98–98.7; O2SAT 92–98
--- NOTE | 2024-02-10 09:04 | ECG ---
[facility] Test Date: 2024-02-08 Test Time: 01:36:42 Pat Name: DARRELL FRIEDMAN Department: Room: 0289 A Gender: F [employer]: NOEL : 1945 Requested By: SINDY LO Order Number: [id number] Reading MD: Brittnee Fowler Measurements Intervals Diagonal Rate: 84 P: 86 NJ: 117 QRS: -33 QRSD: 101 T: 268 QT: 394 QTc: 466 Interpretive Statements Sinus rhythm Borderline short [place] interval Left axis deviation Repol abnrm suggests ischemia, anterolateral Baseline wander in lead(s) V5,V6 Electronically Signed On 02-11-2024 17:24:25 PST by Brittnee Fowler Please click the below link to view image of tracing.
[2024-02-11 01:00] VITALS: BP 105/62; PULSE 82; RESP 17; TEMP 98.3; O2SAT 94
[2024-02-11 05:00] VITALS: BP 118/59; PULSE 80; RESP 16; TEMP 98.7; O2SAT 96
[2024-02-11 07:11] VITALS: PULSE 78; RESP 18; O2SAT 96
[2024-02-11 07:18] VITALS: PULSE 77; RESP 18; O2SAT 98
[2024-02-11 08:00] VITALS: BP 121/66; PULSE 79; RESP 18; RESP 95; TEMP 97.7; O2SAT 95
--- NOTE | 2024-02-11 10:34 | DVHPN2 ---
Reviewed: Care Plan, H&P, Labs Changes from previous H/P or p: No Changes General: Per HPI Eyes: No Pain, No Vision change, No Conjunctivae inflammation, No Eyelid inflammation, No Other, No Redness Cardiovascular: No Chest Pain, No Palpitations, No Orthopnea, No Paroxysmal Noc. Dyspnea, No Edema, No Lt Headedness, No Other Respiratory: No Cough, No Dry; Shortness of breath; No SOB with excertion, No Wheezing, No Hemoptysis, No Pleuritic Pain, No Sputum, No Other Gastrointestinal: No Nausea, No Vomiting, No Abdominal Pain, No Diarrhea, No Constipation, No Melena, No Hematochezia, No Other Genitourinary: No Dysuria, No Frequency, No Incontinence, No Hematuria, No Retention, No Other Musculoskeletal: No other, No neck pain, No shoulder pain, No arm pain; back pain (Chronic back pain); No hand pain, No leg pain, No foot pain Skin: No Rash, No Lesions, No Jaundice, No Bruising, No Other Objective Vitals Vital Signs Date Time Temp Pulse Resp B/P (MAP) Pulse Ox O2 Delivery O2 Flow Rate FiO2 02/11/24 08:00 97.7 79 18 121/66 (84) 95 97.7 02/11/24 08:00 Nasal Cannula* 3 32 Intake/Output Intake and Output 02/11/24 06:59 Intake Total 1320 ml Balance 1320 ml Intake Oral 1020 ml IV Total 300 ml # Voids 6 # Bowel Movements 1 General Appearance: Alert, Oriented X3 (Oriented x2), mild distress HEENT: Atraumatic, PERRLA Lungs: Other (Diminished breath sounds bilaterally. Nasal cannula at 2 liters/minute.) Abdomen: Normal bowel sounds Rectal: Deferred Extremities: No edema, No tenderness/swelling Neuro: Normal speech Skin: Dry, Intact Psych/Mental Status: Mental status NL (Probably at baseline), Other (Some anxiety) Laboratory Results Laboratory Tests 02/02/24 05:20 02/09/24 05:48 Urinalysis Test 02/01/24 07:10 Urine Color Light-yellow (Yellow) Urine Clarity Clear (Clear) Urine pH 6.0 (5.0-9.0) Urine Specific [place] 1.010 (1.001-1.035) Urine Protein Negative (Negative) Urine Ketones Negative (Negative) Urine Blood Negative /uL (Negative) Urine Nitrite Negative (Negative) Urine Bilirubin Negative (Negative) Urine Urobilinogen Normal mg/dL (Negative) Urine Leukocyte Esterase Negative /uL (Negative) Urine RBC 5 /hpf (0 - 4) Urine WBC 5 /hpf (0 - 5) Urine Squamous Epithelial Cells Few /hpf (<5) Urine Bacteria None seen /hpf (None Seen) Urine Mucus Few (None Seen) Urine Glucose Normal mg/dL (Normal) Date of Service: Feb 10, 2024 Billing Provider: CLARA COTTO DO Common Visit Codes: [id number] INP/OBS CARE(HIGH) CLARA COTTO DO Feb 11, 2024 10:34
== END 2024-02-11 08:35 | disposition home health service (06) | DRG 291 ==
LOC: ER 05:37 → EDBD 05:37 → OVERFLOW 09:58 → EDUNIT# 09:58 → EDBD 09:58 → WEST WING 15:57
PROVIDERS: ADMIT Internal Medicine; ATTEND Internal Medicine
DX: I11.0 Hypertensive heart disease with heart failure (principal); I50.33 Acute on chronic diastolic (congestive) heart failure; J96.21 Acute and chronic respiratory failure with hypoxia; J44.1 Chronic obstructive pulmonary disease with (acute) exacerbation; I16.1 Hypertensive emergency; R64 Cachexia; Z68.1 Body mass index [BMI] 19.9 or less, adult; J43.9 Emphysema, unspecified; F41.9 Anxiety disorder, unspecified; F17.210 Nicotine dependence, cigarettes, uncomplicated; Z99.81 Dependence on supplemental oxygen; Z85.118 Personal history of other malignant neoplasm of bronchus and lung; Z51.5 Encounter for palliative care; Z88.4 Allergy status to anesthetic agent; Z88.5 Allergy status to narcotic agent; Z88.8 Allergy status to other drugs, medicaments and biological substances
CPT/HCPCS: 36415; 36600; 71045; 80048; 80053; 81001; 82805; 83735; 83880; 84484; 85025; 93005; 94640; 97110; 97116; 97163; 97530; 99291; G0378; J2405